=== PATIENT | male | born 1975 | race African-American/Black ===

== ENCOUNTER 2017-03-14 15:31 | Observation (INO) | payer SELFPAY ==
[~2017-03-14] VITALS: Ht 181.6 cm; Wt 122.2 kg
[2017-03-14] VITALS (8 sets, daily range): BP systolic 148–202; BP diastolic 109–145; PULSE 68–155; RESP 16–20; TEMP 98.2; O2SAT 91–98
[2017-03-14 16:30] LABS: AUTOMATED NEUTROPHIL # 3.1 TH/MM3 (1.8-7.7); BASOPHIL % 0.5 % (0.0-2.0); EOSINOPHIL % 0.6 % (0.0-4.0); HEMATOCRIT 44.7 % (39.0-51.0); LYMPH % 42.8 % (9.0-44.0); LYMPHOCYTE # 2.8 TH/MM3 (1.0-4.8); MEAN CELL VOLUME 103.4 FL (80.0-100.0); MEAN CORPUSCULAR HEMOGLOBIN 34.8 PG (27.0-34.0); MEAN CORPUSCULAR HGB CONC 33.7 % (32.0-36.0); MEAN PLATELET VOLUME 10.5 FL (7.0-11.0); MONO % 9.5 % (0.0-8.0); MONOCYTE # 0.6 TH/MM3 (0-0.9); NEUT % 46.6 % (16.0-70.0); PLATELET COUNT 176 TH/MM3 (150-450); RED BLOOD COUNT 4.32 MIL/MM3 (4.50-5.90); RED CELL DISTRIBUTION WIDTH 13.8 % (11.6-17.2); WHITE BLOOD COUNT 6.6 TH/MM3 (4.0-11.0)
[2017-03-14 16:31] LABS: BACTERIA, URINE RARE /hpf; BLOOD, URINE SMALL (NEG); GLUCOSE,URINE NEG (NEG); KETONE, URINE NEG (NEG); MUCUS URINE MANY /lpf (OCC); NITRITE,URINE NEG (NEG); PH, URINE 6.5 (5.0-8.5); SQUAMOUS EPITHELIAL CELL URINE <1 /hpf (0-5); URINE COLOR YELLOW (YELLW/STRAW); URINE LEUKOCYTE ESTERASE NEG (NEG)
[2017-03-14 16:35] LABS: BILIRUBIN, URINE NEG (NEG)
[2017-03-14 16:40] LABS: ALBUMIN 4.1 GM/DL (3.4-5.0); AST (GOT) 22 U/L (15-37); BICARBONATE 26.2 MEQ/L (21.0-32.0); BLOOD UREA NITROGEN 13 MG/DL (7-18); CALCIUM 9.3 MG/DL (8.5-10.1); CHLORIDE 104 MEQ/L (98-107); CREATININE 1.19 MG/DL (0.60-1.30); GLOMERULAR FILTRATION RATE 82 ML/MIN (>89); GLUCOSE,RANDOM 97 MG/DL (74-106); SODIUM (NA) 138 MEQ/L (136-145)
[2017-03-14 16:42] LABS: ALT (GPT) 28 U/L (12-78)
[2017-03-14 16:43] LABS: ALKALINE PHOSPHATASE 68 U/L (45-117); TOTAL BILIRUBIN ADULT 1.6 MG/DL (0.2-1.0); TOTAL PROTEIN 8.2 GM/DL (6.4-8.2)
[2017-03-14] MEDS ORDERED: SODIUM CHLOR 0.9% 1000 ML INJ 1,000 ML IV ONE (17:15)
[2017-03-14] MEDS ORDERED: POTASSIUM CHLORIDE 20 MEQ CONTROLLED RELEASE TAB PO ONE (17:15)
[2017-03-14] MEDS ORDERED: KETOROLAC TROMETHAMINE 30 MG/ML (IVP) VIAL IV PUSH ONE (17:15)
--- NOTE | 2017-03-14 17:15 | PD ---
HPI Chief Complaint: sob Time Seen by Provider: 17:05 Travel History International Travel<30 days: No Contact w/Intl Traveler<30days: No Traveled to known affect area: No History of Present Illness HPI 41yo M with no PMH presents to the ED with c/o sob, right rib pain, nausea, and nonbloody diarrhea for 2 days. Said pain is worst with movement. Occasional abdominal bloating. Denies any trauma or fall. Said he has not had good bowel movement for 2 days and when he does, it is more diarrhea. Denies any fever, chest pain, dysuria, hematuria. PFSH Past Medical History Medical History: Denies Significant Hx Tetanus Vaccination: Unknown Influenza Vaccination: No Past Surgical History Surgical History: No Previous Surgery Social History Alcohol Use: Yes (OCC) Tobacco Use: No Substance Use: No (FORMER MARIJUANA USE) Allergies-Medications (Allergen,Severity, Reaction): Coded Allergies: No Known Allergies (Unverified , 03/14/17) Reported Meds & Prescriptions Reported Meds & Active Scripts Active No Active Prescriptions or Reported Medications Review of Systems Except as stated in HPI: all other systems reviewed are Neg Physical Exam Narrative GENERAL: 41yo M in mild distress. SKIN: Focused skin assessment warm/dry. HEAD: Atraumatic. Normocephalic. CARDIOVASCULAR: Regular rate and rhythm. No murmur appreciated. RESPIRATORY: No accessory muscle use. Clear to auscultation. Breath sounds equal bilaterally. GASTROINTESTINAL: Abdomen soft, non-tender, nondistended. No rebound tenderness or guarding. MUSCULOSKELETAL: Right lower rib ttp. No rash. NEUROLOGICAL: Awake and alert. No obvious cranial nerve deficits. Motor grossly within normal limits. Normal speech. PSYCHIATRIC: Appropriate mood and affect; insight and judgment normal. Data Data Last Documented VS Vital Signs Date Time Temp Pulse Resp B/P (MAP) Pulse Ox O2 Delivery O2 Flow Rate FiO2 03/14/17 20:28 93 Nasal Cannula 2.00 03/14/17 20:27 20 03/14/17 20:16 110 03/14/17 15:35 98.2 Orders Orders Complete Blood Count With Diff (03/14/17 15:48) Comprehensive Metabolic Panel (03/14/17 15:48) Lipase (03/14/17 15:48) Urinalysis - C+S If Indicated (03/14/17 15:48) Influenzae A/B Antigen (03/14/17 15:48) Potassium Chloride (Kcl) (03/14/17 17:15) Ketorolac Inj (Toradol Inj) (03/14/17 17:15) Sodium Chlor 0.9% 1000 Ml Inj (Ns 1000 M (03/14/17 17:15) Ribs, Uni (W/Exp Cxr-Min 3vw) (03/14/17 ) Ondansetron Inj (Zofran Inj) (03/14/17 17:30) Electrocardiogram (03/14/17 ) Lorazepam Inj (Ativan Inj) (03/14/17 20:00) Diltiazem Inj (Cardizem Inj) (03/14/17 20:15) Troponin I (03/14/17 20:18) Ct Pulmonary Angiogram (03/14/17 ) Iohexol 350 Inj (Omnipaque 350 Inj) (03/14/17 20:55) Hydralazine Inj (Apresoline Inj) (03/14/17 21:15) Admit Order (Ed Use Only) (03/14/17 21:45) Labs Laboratory Tests Test 03/14/17 16:02 03/14/17 20:26 White Blood Count 6.6 TH/MM3 Red Blood Count 4.32 MIL/MM3 Hemoglobin 15.0 GM/DL Hematocrit 44.7 % Mean Corpuscular Volume 103.4 FL Mean Corpuscular Hemoglobin 34.8 PG Mean Corpuscular Hemoglobin Concent 33.7 % Red Cell Distribution Width 13.8 % Platelet Count 176 TH/MM3 Mean Platelet Volume 10.5 FL Neutrophils (%) (Auto) 46.6 % Lymphocytes (%) (Auto) 42.8 % Monocytes (%) (Auto) 9.5 % Eosinophils (%) (Auto) 0.6 % Basophils (%) (Auto) 0.5 % Neutrophils # (Auto) 3.1 TH/MM3 Lymphocytes # (Auto) 2.8 TH/MM3 Monocytes # (Auto) 0.6 TH/MM3 Eosinophils # (Auto) 0.0 TH/MM3 Basophils # (Auto) 0.0 TH/MM3 CBC Comment DIFF FINAL Differential Comment Urine Color YELLOW Urine Turbidity CLEAR Urine pH 6.5 Urine Specific [place] 1.023 Urine Protein 100 mg/dL Urine Glucose (UA) NEG mg/dL Urine Ketones NEG mg/dL Urine Occult Blood SMALL Urine Nitrite NEG Urine Bilirubin NEG Urine Urobilinogen 2.0 MG/DL Urine Leukocyte Esterase NEG Urine RBC 9 /hpf Urine WBC 2 /hpf Urine Squamous Epithelial Cells <1 /hpf Urine Bacteria RARE /hpf Urine Mucus MANY /lpf Microscopic Urinalysis Comment CULT NOT INDICATED Blood Urea Nitrogen 13 MG/DL Creatinine 1.19 MG/DL Random Glucose 97 MG/DL Total Protein 8.2 GM/DL Albumin 4.1 GM/DL Calcium Level 9.3 MG/DL Alkaline Phosphatase 68 U/L Aspartate Amino Transf (AST/SGOT) 22 U/L Alanine Aminotransferase (ALT/SGPT) 28 U/L Total Bilirubin 1.6 MG/DL Sodium Level 138 MEQ/L Potassium Level 3.0 MEQ/L Chloride Level 104 MEQ/L Carbon Dioxide Level 26.2 MEQ/L Anion Gap 8 MEQ/L Estimat Glomerular Filtration Rate 82 ML/MIN Lipase 61 U/L Troponin I 0.07 NG/ML MDM Medical Decision Making Medical Screen Exam Complete: Yes Emergency Medical Condition: Yes Interpretation(s) EKG: Afib at 153bpm. Normal axis. Differential Diagnosis Gastroenteritis vs. musculoskeletal pain vs. rib fracture vs. pneumonia Narrative Course 41yo M with multiple complaints. For the last 2 days, he has been feeling sob, nauseous, having diarrhea and occasional abdominal pain. Abdominal exam was unremarkable. However, he is tender in right ribs. Labs reviewed, no leukocytosis. Mild hypokalemia, replaced with PO KCl. Lipase low. Mildly elevated bilirubin with normal LFTs, likely dehydration. UA showed negative leukocyte. Culture not indicated. Will give NS IVF, toradol and zofran and reevaluate. Pt reevaluated at bedside and said his pain has resolved. Xray right ribs showed no fracture. Lungs clear. Compensated cardiomegaly. Pt said he still feels sob and now his heart is racing. Pt placed on monitor and has afib in the 150s-160s. Pt given 31mg of cardizem IV and HR is now in the 90s and low 100s. Lungs are clear. Pt denies any chest pain but is diaphoretic. Troponin added. Pt said he has no PMH except eczema. HR has been controlled after 31mg of cardizem. Pt's blood pressure is still very elevated, given hydralazine 10gm IV. Pt reevaluated at bedside and still feels sob. CT angio showed negative for PE. Bilateral pleural effusions. Troponin mildly elevated at 0.07 which is likely secondary to his elevated blood pressure but will r/o ACS. Discussed with Dr. Grande and accepted to her service. Pt reevaluated and heart rate is now back to 120s, will start pt on cardizem drip. Critical Care Narrative Aggregate critical care time was 60 minutes. Time to perform other separately billable procedures was not included in the critical care time. My time did not include minutes spent treating any other patients simultaneously or on activities that did not directly contribute to the patient's treatment. The services I provided to this patient were to treat and/or prevent clinically significant deterioration that could result in: cardiovascular collapse or . I provided critical care services requiring my management, as noted below: Chart data review, documentation time, medication orders and management, vital sign assessments/reviewing monitor data, ordering and reviewing lab tests, ordering and interpreting/reviewing x-rays and diagnostic studies, care of the patient and discussion of the patient with the admitting physicians. Diagnosis Primary Impression: New onset a-fib Additional Impressions: Pleural effusion Hypertensive emergency Admitting Information Admitting Physician Requests: Admit Scripts No Active Prescriptions or Reported Meds Tamara Vogel DO Mar 14, 2017 17:15
[2017-03-14] MEDS ORDERED: ONDANSETRON HCL 4 MG/2 ML VIAL IV PUSH ONE (17:30)
--- NOTE | 2017-03-14 17:58 | RADRPT ---
EXAM DATE/TIME: 03/14/2017 17:40 [facility] COMPARISON: No previous studies available for comparison. INDICATIONS : Right side chest pain. Cough. MEDICAL HISTORY : None. SURGICAL HISTORY : None. ENCOUNTER: Initial ACUITY: 3 days PAIN SCORE: 5/10 LOCATION: Right chest FINDINGS: Multiple views of the right ribs were performed. There is no evidence of displaced fracture. No raz tructive lesions or areas of periosteal thickening are seen. Expiratory view of the chest is negativ e for pneumothorax. The mediastinal structures are midline. There is degenerative spurring of the dorsal spine. I'd size is prominent but well compensated. Calci fic densities in the soft tissues of the left axilla are nonspecific and may represent debris on the skin surface although calcified regional lymph nodes cannot be excluded. CONCLUSION: 1. Degenerative spurring of the dorsal spine. No fracture. 2. Lungs are clear. 3. Compensated cardiomegaly. Mukesh Patel MD on March 14, 2017 at 17:52 Board Certified Radiologist. This report was verified electronically.
[2017-03-14] MEDS ORDERED: LORazepam 2 MG/ML VIAL IV PUSH ONE (20:00)
[2017-03-14] MEDS ORDERED: DILTIAZEM HCL 25 MG/5 ML VIAL IV PUSH ONE (20:15)
[2017-03-14] MEDS ORDERED: IOHEXOL 350 MG/ML 10 ML VIAL (for RAD DIAG) IVCONTRAST ONE (20:55)
[2017-03-14] MEDS ORDERED: hydrALAZINE HCL 20 MG/ML VIAL IV PUSH ONE (21:15)
--- NOTE | 2017-03-14 21:28 | RADRPT ---
EXAM DATE/TIME: 03/14/2017 20:44 [facility] COMPARISON: No previous studies available for comparison. INDICATIONS : Right side chest pain. IV CONTRAST: 70 cc Omnipaque 350 (iohexol) IV RADIATION DOSE: 23.17 CTDIvol (mGy) MEDICAL HISTORY : None SURGICAL HISTORY : None. ENCOUNTER: Initial ACUITY: 2 days PAIN SCALE: 5/10 LOCATION: Right chest TECHNIQUE: Volumetric scanning of the chest was performed using a pulmonary embolism protocol MIP images were re constructed. Using automated exposure control and adjustment of the mA and/or kV according to patien t size, radiation dose was kept as low as reasonably achievable to obtain optimal diagnostic quality images. DICOM format image data is available electronically for review and comparison. Follow-up recommendations for detected pulmonary nodules are based at a minimum on nodule size and pa tient risk factors according to Fleischner Society Guidelines. FINDINGS: No filling defects identified to suggest pulmonary embolic disease. Bilateral pleural effusions, righ t greater than left. Mild edema pattern. Calcified mediastinal lymph nodes and left axillary lymph no raz. Mild left axillary adenopathy measuring up to 1.8 cm. CONCLUSION: 1. Negative for pulmonary embolus. Bilateral pleural effusions. Multiple calcified mediastinal and ax illary lymph nodes with axillary adenopathy on the left side up to 1.8 cm in diameter. Patrick Weston MD on March 14, 2017 at 21:22 Board Certified Radiologist. This report was verified electronically.
[2017-03-14] MEDS ORDERED: SODIUM CHLORIDE 0.9% FLUSH 10 ML FLUSH IV FLUSH PRN (22:00)
[2017-03-14] MEDS ORDERED: NALOXONE HCL 0.4 MG/ML AMP IV PUSH PRN (22:00)
[2017-03-14] MEDS: DILTIAZEM INJ 125 MG in SODIUM CHLORIDE 0.9% INJ 100 ML IV PRN (23:07)
[2017-03-14] MEDS: ENOXAPARIN SODIUM 40 MG/0.4 ML SYRINGE SQ SCH (23:51)
[2017-03-15] VITALS (9 sets, daily range): BP systolic 135–170; BP diastolic 90–124; PULSE 87–109; RESP 16–18; TEMP 98.2–98.7; O2SAT 91–100
--- NOTE | 2017-03-15 00:26 | EKG ---
Date Performed: 03/14/2017 Time Performed: 20:04:57 PTAGE: 41 years EKG: ATRIAL FIBRILLATION WITH RAPID VENTRICULAR RESPONSE POSSIBLE RIGHT VENTRICULAR CONDUCTION D ELAY NONSPECIFIC T-WAVE ABNORMALITY ABNORMAL RHYTHM ECG NO PREVIOUS TRACING DOCTOR: Lg Green Interpretating Date/Time 03/15/2017 00:24:44
--- NOTE | 2017-03-15 01:20 | HHI.HP ---
[facility] Service [facility] Primary Care Physician No Primary Care Physician Admission Diagnosis Afib RVR, hypertensive emergency Diagnoses: Travel History International Travel<30 Days: No Contact w/Intl Traveler <30 Da: No Traveled to Known Affected Are: No History of Present Illness 41-year-old male presents to the emergency department with a 2 day history of abdominal pain and accompanying nausea/vomiting/diarrhea. The patient reports he came to the emergency department for evaluation of this abdominal pain. While in the ED, he was noted to be tachycardic and EKG showed atrial fibrillation with rapid ventricular response. The patient was also hypertensive to 202/145. He states he developed shortness of breath and heart palpitations both of which were very disconcerting to him. Patient denies any associated chest pain. He has never had anything like this occur in the past. He has no significant medical history although has not been to a doctor in "years." Review of Systems Denies fever or chills Denies blurry vision, otorrhea, rhinorrhea Denies sore throat and cough No chest pain, positive palpitations Positive shortness of breath, no wheezing Positive abdominal pain Denies constipation. Positive diarrhea/nausea/vomiting Denies muscle pain Denies focal weakness No rashes Past Family Social History Past Medical History None Past Surgical History None Reported Medications None Allergies: Coded Allergies: No Known Allergies (Unverified , 03/14/17) Family History Both parents with diabetes mellitus Social History Denies tobacco. Occasional alcohol and marijuana. Denies other illicit drugs. Physical Exam Vital Signs Vital Signs Date Time Temp Pulse Resp B/P (MAP) Pulse Ox O2 Delivery O2 Flow Rate FiO2 03/14/17 23:52 118 20 148/114 (125) 98 Nasal Cannula 2.00 03/14/17 23:07 118 03/14/17 20:28 93 Nasal Cannula 2.00 03/14/17 20:27 20 91 Room Air 03/14/17 20:16 110 20 170/129 (143) 94 03/14/17 20:07 155 16 202/145 (164) 95 Room Air 03/14/17 18:01 68 16 154/115 (128) 98 Room Air 03/14/17 16:41 18 03/14/17 15:46 172/109 (130) 03/14/17 15:35 98.2 103 18 98 Physical Exam GENERAL: male lying in bed SKIN: No rashes, ecchymoses or lesions. Cool and dry. HEAD: Atraumatic. Normocephalic. No temporal or scalp tenderness. EYES: Pupils equal round and reactive. Extraocular motions intact. No scleral icterus. No injection or drainage. ENT: Nose without bleeding, purulent drainage or septal hematoma. Throat without erythema, tonsillar hypertrophy or exudate. Uvula midline. Airway patent. NECK: Trachea midline. No JVD or lymphadenopathy. Supple, nontender, no meningeal signs. CARDIOVASCULAR: Tachycardic. Irregularly irregular rate without murmurs, gallops, or rubs. RESPIRATORY: Clear to auscultation. Breath sounds equal bilaterally. No wheezes , rales, or rhonchi. GASTROINTESTINAL: Abdomen soft, non-tender, nondistended. No hepato-splenomegaly , or palpable masses. No guarding. MUSCULOSKELETAL: Extremities without clubbing, cyanosis, or edema. No joint tenderness, effusion, or edema noted. No calf tenderness. NEUROLOGICAL: Awake and alert. Cranial nerves II through XII intact. Motor and sensory grossly within normal limits. Normal speech. Laboratory Laboratory Tests Test 03/14/17 16:02 03/14/17 20:26 White Blood Count 6.6 Red Blood Count 4.32 Hemoglobin 15.0 Hematocrit 44.7 Mean Corpuscular Volume 103.4 Mean Corpuscular Hemoglobin 34.8 Mean Corpuscular Hemoglobin Concent 33.7 Red Cell Distribution Width 13.8 Platelet Count 176 Mean Platelet Volume 10.5 Neutrophils (%) (Auto) 46.6 Lymphocytes (%) (Auto) 42.8 Monocytes (%) (Auto) 9.5 Eosinophils (%) (Auto) 0.6 Basophils (%) (Auto) 0.5 Neutrophils # (Auto) 3.1 Lymphocytes # (Auto) 2.8 Monocytes # (Auto) 0.6 Eosinophils # (Auto) 0.0 Basophils # (Auto) 0.0 CBC Comment DIFF FINAL Differential Comment Urine Color YELLOW Urine Turbidity CLEAR Urine pH 6.5 Urine Specific [place] 1.023 Urine Protein 100 Urine Glucose (UA) NEG Urine Ketones NEG Urine Occult Blood SMALL Urine Nitrite NEG Urine Bilirubin NEG Urine Urobilinogen 2.0 Urine Leukocyte Esterase NEG Urine RBC 9 Urine WBC 2 Urine Squamous Epithelial Cells <1 Urine Bacteria RARE Urine Mucus MANY Microscopic Urinalysis Comment CULT NOT INDICATED Blood Urea Nitrogen 13 Creatinine 1.19 Random Glucose 97 Total Protein 8.2 Albumin 4.1 Calcium Level 9.3 Alkaline Phosphatase 68 Aspartate Amino Transf (AST/SGOT) 22 Alanine Aminotransferase (ALT/SGPT) 28 Total Bilirubin 1.6 Sodium Level 138 Potassium Level 3.0 Chloride Level 104 Carbon Dioxide Level 26.2 Anion Gap 8 Estimat Glomerular Filtration Rate 82 B-Type Natriuretic Peptide 418 Lipase 61 Troponin I 0.07 Date/Time Source Procedure Growth Status 03/14/17 16:02 Nasal Aspirate Influenza Types A,B Antigen (SAHARA) - Final NEGATIVE FOR FLU A AND B ANTIGEN.... Complete Result Diagram: 03/14/17 1602 03/14/17 1602 Caprini VTE Risk Assessment Caprini VTE Risk Assessment: No/Low Risk (score <= 1) Caprini Risk Assessment Model Point Value = 1 Point Value = 2 Point Value = 3 Point Value = 5 Age 41-60 Minor surgery BMI > 25 kg/m2 Swollen legs Varicose veins or History of unexplained or recurrent spontaneous Oral contraceptives or hormone replacement Sepsis (< 1 month) Serious lung disease, including pneumonia (< 1 month) Abnormal pulmonary function Acute myocardial infarction Congestive heart failure (< 1 month) History of inflammatory bowel disease Medical patient at bed rest Age 61-74 Arthroscopic surgery Major open surgery (> 45 min) Laparoscopic surgery (> 45 min) Malignancy Confined to bed (> 72 hours) Immobilizing plaster cast Central venous access Age >= 75 History of VTE Family history of VTE Factor V Leiden Prothrombin 53310C Lupus anticoagulant Anticardiolipin antibodies Elevated serum homocysteine Heparin-induced thrombocytopenia Other congenital or acquired thrombophilia Stroke (< 1 month) Elective arthroplasty Hip, pelvis, or leg fracture Acute spinal cord injury (< 1 month) Prophylaxis Regimen Total Risk Factor Score Risk Level Prophylaxis Regimen 0-1 Low Early ambulation 2 Moderate Order ONE of the following: *Sequential Compression Device (SCD) *Heparin 5000 units SQ BID 3-4 Higher Order ONE of the following medications: *Heparin 5000 units SQ TID *Enoxaparin/Lovenox 40 mg SQ daily (WT < 150 kg, CrCl > 30 mL/min) *Enoxaparin/Lovenox 30 mg SQ daily (WT < 150 kg, CrCl > 10-29 mL/min) *Enoxaparin/Lovenox 30 mg SQ BID (WT < 150 kg, CrCl > 30 mL/min) AND/OR *Sequential Compression Device (SCD) 5 or more Highest Order ONE of the following medications: *Heparin 5000 units SQ TID (Preferred with Epidurals) *Enoxaparin/Lovenox 40 mg SQ daily (WT < 150 kg, CrCl > 30 mL/min) *Enoxaparin/Lovenox 30 mg SQ daily (WT < 150 kg, CrCl > 10-29 mL/min) *Enoxaparin/Lovenox 30 mg SQ BID (WT < 150 kg, CrCl > 30 mL/min) AND *Sequential Compression Device (SCD) Assessment and Plan Assessment and Plan Assessment/plan: 1. Atrial fibrillation with rapid ventricular response EKG significant for atrial fibrillation with RVR, HR 153, no ST segment elevations or depressions, images reviewed by me New onset, cardiology consulted, appreciate recommendations Diltiazem drip ECHO pending 2. Hypertensive urgency BP elevated to 202/145 in the emergency department Diltiazem drip as above 3. Elevated troponin Troponin elevated to 0.07, likely secondary to new onset atrial fibrillation Patient denies any associated chest pain Serial troponins/EKGs to rule out ACS 4. Abdominal pain with nausea/vomiting/diarrhea Resolved at this time Likely viral in origin Consider stool studies or CT abdomen if symptoms persist/return Patient currently tolerating by mouth 5. Hypokalemia Status post by mouth supplementation Monitor BMP Mag level pending [facility] Healthy diet Electrolyte: As above Physician Certification 2 Midnight Certification Type: Admission for Inpatient Services Order for Inpatient Services The services are ordered in accordance with Medicare regulations or non- Medicare payer requirements, as applicable. In the case of services not specified as inpatient-only, they are appropriately provided as inpatient services in accordance with the 2-midnight benchmark. Estimated LOS (days): 2 2 days is the estimated time the patient will need to remain in the hospital, assuming treatment plan goals are met and no additional complications. Post-Hospital Plan: Not yet determined Pearl Grande MD Mar 15, 2017 01:20
[2017-03-15 03:04] LABS: AUTOMATED NEUTROPHIL # 2.4 TH/MM3 (1.8-7.7); BASOPHIL % 0.7 % (0.0-2.0); EOSINOPHIL % 0.7 % (0.0-4.0); HEMOGLOBIN 13.2 GM/DL (13.0-17.0); LYMPH % 47.9 % (9.0-44.0); LYMPHOCYTE # 2.7 TH/MM3 (1.0-4.8); MEAN CELL VOLUME 103.6 FL (80.0-100.0); MEAN CORPUSCULAR HEMOGLOBIN 35.1 PG (27.0-34.0); MEAN CORPUSCULAR HGB CONC 33.9 % (32.0-36.0); MEAN PLATELET VOLUME 10.4 FL (7.0-11.0); MONO % 8.9 % (0.0-8.0); MONOCYTE # 0.5 TH/MM3 (0-0.9); NEUT % 41.8 % (16.0-70.0); PLATELET COUNT 163 TH/MM3 (150-450); RED BLOOD COUNT 3.77 MIL/MM3 (4.50-5.90); RED CELL DISTRIBUTION WIDTH 14.1 % (11.6-17.2); WHITE BLOOD COUNT 5.6 TH/MM3 (4.0-11.0)
[2017-03-15] MEDS: ACETAMINOPHEN 325 MG TAB PO PRN ×2 (03:27→20:10)
[2017-03-15 03:33] LABS: BICARBONATE 25.3 MEQ/L (21.0-32.0); CALCIUM 8.2 MG/DL (8.5-10.1); CREATININE 0.88 MG/DL (0.60-1.30)
[2017-03-15 03:34] LABS: TROPONIN I 0.07 NG/ML (0.02-0.05)
[2017-03-15] MEDS ORDERED: IBUPROFEN 400 MG TAB PO ONE (06:30)
[2017-03-15] MEDS: DILTIAZEM INJ 125 MG in SODIUM CHLORIDE 0.9% INJ 100 ML IV PRN ×4 (06:40→23:50)
[2017-03-15] MEDS: SODIUM CHLORIDE 0.9% FLUSH 10 ML FLUSH IV FLUSH SCH ×2 (09:00→21:00)
[2017-03-15 10:17] LABS: TROPONIN I 0.06 NG/ML (0.02-0.05)
--- NOTE | 2017-03-15 15:55 | HHI.PR ---
Subjective Remarks Follow-up for atrial fibrillation and hypertensive urgency Patient stated that shortness of breathing has improved. Continues to complain about right upper quadrant pain. He stated that pain worsens with oral intake. He also has constipation. Positive for emesis. Denies any chest pain, palpitation, lightheadedness or dizziness. Objective Vitals Vital Signs Date Time Temp Pulse Resp B/P (MAP) Pulse Ox O2 Delivery O2 Flow Rate FiO2 03/15/17 15:10 96 130/100 03/15/17 14:07 Nasal Cannula 2.00 03/15/17 13:00 98.5 90 16 158/121 (133) 92 03/15/17 12:37 03/15/17 12:17 110 03/15/17 09:34 107 18 151/97 (115) 100 03/15/17 07:23 87 18 100 Nasal Cannula 2.00 03/15/17 06:40 112 03/15/17 03:27 106 18 167/119 (135) 98 Nasal Cannula 2.00 03/14/17 23:52 118 20 148/114 (125) 98 Nasal Cannula 2.00 03/14/17 23:07 118 03/14/17 20:28 93 Nasal Cannula 2.00 03/14/17 20:27 20 91 Room Air 03/14/17 20:16 110 20 170/129 (143) 94 03/14/17 20:07 155 16 202/145 (164) 95 Room Air 03/14/17 18:01 68 16 154/115 (128) 98 Room Air 03/14/17 16:41 18 03/14/17 15:46 172/109 (130) I/O 03/14/17 03/14/17 03/14/17 03/15/17 03/15/17 03/15/17 07:00 15:00 23:00 07:00 15:00 23:00 Intake Total 1000 ml Balance 1000 ml Intake IV Total 1000 ml Result Diagram: 03/15/1724103/15/17241 Imaging . Objective Remarks GENERAL: in NAD CARDIOVASCULAR: Irregular rate and irregular rhythm without murmurs, gallops, or rubs. RESPIRATORY: Breath sounds equal bilaterally. No accessory muscle use. GASTROINTESTINAL: Abdomen soft and nondistended. +TTP in RUQ MUSCULOSKELETAL: No cyanosis, or edema Medications and IVs Current Medications Potassium Chloride (KCl) 60 meq ONCE ONCE PO Last administered on 03/14/17at 17 :56; Start 03/14/17 at 17:15; Stop 03/14/17 at 17:16; Status DC Ketorolac Tromethamine (Toradol Inj) 30 mg ONCE ONCE IV PUSH Last administered on 03/14/17at 17:56; Start 03/14/17 at 17:15; Stop 03/14/17 at 17:16 ; Status DC Sodium Chloride 1,000 ml @ 999 mls/hr BOLUS ONCE IV Last administered on 03/14at 17:56; Start 03/14/17 at 17:15; Stop 03/14/17 at 18:39; Status DC Ondansetron HCl (Zofran Inj) 4 mg ONCE ONCE IV PUSH Last administered on at 17:56; Start 03/14/17 at 17:30; Stop 03/14/17 at 17:31; Status DC Lorazepam (Ativan Inj) 1 mg ONCE ONCE IV PUSH Last administered on 03/14/17at 20:15; Start 03/14/17 at 20:00; Stop 03/14/17 at 20:08; Status DC Diltiazem HCl (Cardizem Inj) 31 mg BOLUS ONCE IV PUSH Last administered on at 20:15; Start 03/14/17 at 20:15; Stop 03/14/17 at 20:16; Status DC Iohexol (Omnipaque 350 Inj) 70 ml STK-MED ONCE IVCONTRAST Last administered on 03/14/17at 20:55; Start 03/14/17 at 20:55; Stop 03/14/17 at 20:56; Status DC Hydralazine HCl (Apresoline Inj) 10 mg ONCE ONCE IV PUSH Last administered on 03/14/17at 21:26; Start 03/14/17 at 21:15; Stop 03/14/17 at 21:19; Status DC Diltiazem HCl 125 mg/Sodium Chloride 125 ml @ 5 mls/hr TITRATE PRN IV Tachycardia Last administered on 03/15/17at 15:10; Start 03/14/17 at 22:00 Sodium Chloride (NS Flush) 2 ml UNSCH PRN IV FLUSH FLUSH AFTER USING IV ACCESS ; Start 1/24/18 at 22:00 Sodium Chloride (NS Flush) 2 ml BID IV FLUSH ; Start 03/15/17 at 09:00 Acetaminophen (Tylenol) 650 mg Q4H PRN PO TEMP > 100.4 Last administered on at 03:27; Start 03/14/17 at 22:00 Enoxaparin Sodium (Lovenox Inj) 40 mg Q24H SQ Last administered on 03/14/17at 23 :51; Start 03/14/17 at 22:00 Naloxone HCl (Narcan Inj) 0.4 mg UNSCH PRN IV PUSH SEE LABEL COMMENTS; Start at 22:00 Ibuprofen (Motrin) 400 mg ONCE ONCE PO Last administered on 03/15/17at 06:43; Start 03/15/17 at 06:30; Stop 03/15/17 at 06:31; Status DC A/P Assessment and Plan This is a 41-year-old male presented with stress of breathing and right upper quadrant pain 1. Atrial fibrillation with rapid ventricular response EKG significant for atrial fibrillation with RVR, HR 153, no ST segment elevations or depressions. New onset, cardiology consulted. Recommendations. On Cardizem drip. ECHO pending CHADSVASC 1 (HTN) will add ASA 81. 2. Hypertensive urgency BP elevated to 202/145 in the emergency department Improving Diltiazem drip as above 3. Elevated troponin Troponin elevated to 0.07 and flat. Most likely secondary to atrophic fibrillation with RVR. 4. Abdominal pain with nausea/vomiting -Abdominal pain more in the right upper quadrant associated with food. Will get ultrasound the gallbladder. 5. Hypokalemia Replenish as needed. 6. Constipation -Will give MiraLAX. Noris Martinez MD Mar 15, 2017 15:55
[2017-03-15] MEDS: ASPIRIN EC 81 MG TABEC PO SCH (17:08)
[2017-03-15] MEDS: POLYETHYLENE GLYCOL 17 GM PKG PO SCH (17:09)
--- NOTE | 2017-03-15 18:12 | ECHRPT ---
Indication: a fib/flutter CONCLUSIONS The left ventricular systolic function is [id number] reduced with an estimated ejection fra ction in the range of 35-40%. Normal left ventricular size. Trace mitral valve regurgitation. No aortic valve regurgitation. No aortic valve stenosis. There is mild tricuspid valve regurgitation. The estimated pulmonary arterial pressure is 36.2 mmHg. BP: / HR: Rhythm: MEASUREMENTS (Male / Female) Normal Values Technical Quality:Good 2D ECHO LV Diastolic Diameter PLAX 5.0 cm 4.2 - 5.9 / 3.9 - 5.3 cm LV Systolic Diameter PLAX 4.3 cm IVS Diastolic Thickness 1.8 cm 0.6 - 1.0 / 0.6 - 0.9 cm LVPW Diastolic Thickness 1.7 cm 0.6 - 1.0 / 0.6 - 0.9 cm LV Relative Wall Thickness 0.7 RV Internal Dim ED PLAX 3.5 cm M-MODE Aortic Root Diameter MM 4.1 cm LA Systolic Diameter MM 5.1 cm LA Ao Ratio MM 1.2 AV Cusp Separation MM 2.3 cm DOPPLER LV E' Lateral Velocity 8.5 cm/s LV E' Septal Velocity 8.0 cm/s TR Peak Velocity 256.0 cm/s TR Peak Gradient 26.2 mmHg Right Atrial Pressure 10.0 mmHg Pulmonary Artery Systolic Pressu 36.2 mmHg Right Ventricular Systolic Press 36.2 mmHg FINDINGS LEFT VENTRICLE The left ventricular systolic function is ohgvoynb-[id number] reduced with an estimated ejection fra ction in the range of 35-40%. Normal left ventricular size. RIGHT VENTRICLE Normal right ventricular size and systolic function. LEFT ATRIUM The left atrial size is normal. RIGHT ATRIUM The right atrial size is normal. ATRIAL SEPTUM Normal atrial septal thickness without atrial level shunting by limited color doppler interrogation. AORTA The aortic root and proximal ascending aorta are normal in size on limited imaging. MITRAL VALVE Structurally normal mitral valve. Trace mitral valve regurgitation. AORTIC VALVE Trileaflet aortic valve. No aortic valve regurgitation. No aortic valve stenosis. TRICUSPID VALVE Structurally normal tricuspid valve. There is mild tricuspid valve regurgitation. The estimated pulmonary arterial pressure is 36.2 mmHg. PULMONARY VALVE No pulmonary valve regurgitation or stenosis. VESSELS The inferior vena cava is normal in size. PERICARDIUM No pericardial effusion. Jovani Burns MD (Electronically Signed) Final Date:15 March 2017 18:11
[2017-03-15] MEDS: amLODIPine BESYLATE 5 MG TAB PO SCH (18:57)
[2017-03-15] MEDS: ENOXAPARIN SODIUM 40 MG/0.4 ML SYRINGE SQ SCH (22:20)
--- NOTE | 2017-03-15 22:31 | MB ---
cc: SKY GERARDO MD DATE OF CONSULTATION 03/15/17 HISTORY OF PRESENT ILLNESS Mr. Whyte is a 41-year-old black male who presented with two-day history of abdominal pain, nausea, vomiting and diarrhea. He was found to be in atrial fibrillation with rapid ventricular response. He also had severe hypertension. He has had symptoms since last Sunday. He has not been seeing any physicians for years. He has not had any chest pain. PAST MEDICAL HISTORY Negative for hypertension, dyslipidemia, diabetes mellitus, coronary artery disease, cerebrovascular accident. PAST SURGICAL HISTORY No major surgeries. MEDICATIONS None. ALLERGIES None. SOCIAL HISTORY The patient does not smoke. He drinks alcohol occasionally. He smokes marijuana. He does not use other drugs. FAMILY HISTORY Negative for heart disease and positive for diabetes mellitus. REVIEW OF SYSTEMS Otherwise negative. PHYSICAL EXAMINATION VITAL SIGNS: Blood pressure 130/100, pulse 96 and irregular. HEENT: Negative. 2+ carotid upstrokes. No bruits. LUNGS: Clear. HEART: Irregularly irregular with no murmur, gallop or rub. ABDOMEN: Soft. No bruits. EXTREMITIES: Without edema. 2+ distal pulses NEUROLOGIC: Grossly intact. CARDIOLOGY STUDIES EKG was reviewed and showed atrial fibrillation with rapid ventricular response, RSR prime in V1, nonspecific T-wave changes. LABORATORY DATA Hemoglobin 13.2, potassium 3.6, creatinine 0.9, troponin 0.07, 0.07 and 0.06. BNP 418. DIAGNOSES 1. Atrial fibrillation with rapid ventricular response. 2. Severe hypertension, 3. Mild troponin elevation. 4. Nausea, vomiting and abdominal pain. DISPOSITION Mr Whyte will be monitored on telemetry. We will continue rate control of his atrial fibrillation with diltiazem. We will continue aspirin and Enoxaparin. If he does not convert spontaneously, we may consider cardioversion of his atrial fibrillation. We will obtain echocardiogram to evaluate his left ventricular function. I will follow him for cardiology during his hospitalization. MD CATE Chinchilla/ /5:14 PM /9:59 PM TANVI
--- NOTE | 2017-03-15 22:52 | EKG ---
Date Performed: 03/15/2017 Time Performed: 09:25:27 PTAGE: 41 years EKG: ATRIAL FIBRILLATION WITH RAPID VENTRICULAR RESPONSE POSSIBLE RIGHT VENTRICULAR CONDUCTION D ELAY NONSPECIFIC T-WAVE ABNORMALITY ABNORMAL RHYTHM ECG PREVIOUS TRACING : 03/15/2017 03.22 Since the prior tracing, there has been no significant torres DOCTOR: Lg Green Interpretating Date/Time 03/15/2017 22:52:14
--- NOTE | 2017-03-15 23:31 | EKG ---
Date Performed: 03/15/2017 Time Performed: 03:22:25 PTAGE: 41 years EKG: ATRIAL FIBRILLATION WITH RAPID VENTRICULAR RESPONSE POSSIBLE RIGHT VENTRICULAR CONDUCTION D NEHEMIAH MINIMAL VOLTAGE CRITERIA FOR LVH, CONSIDER NORMAL VARIANT NONSPECIFIC T-WAVE ABNORMALITY ABNORMA L RHYTHM ECG Since the prior tracing, there has been no significant change DOCTOR: Lg Green Interpretating Date/Time 03/15/2017 23:29:53
[2017-03-16] VITALS (8 sets, daily range): BP systolic 158–183; BP diastolic 82–118; PULSE 81–126; RESP 18–20; TEMP 98.3–98.8; O2SAT 94–95
[2017-03-16] MEDS: ACETAMINOPHEN 325 MG TAB PO PRN ×5 (00:20→23:00)
[2017-03-16] MEDS: ENALAPRILAT 2.5 MG/2 ML VIAL IV PUSH PRN ×2 (02:28→13:37)
--- NOTE | 2017-03-16 08:24 | HHI.PR ---
Subjective Remarks in no acute distress. has occasional cough and sob. no chest pain. still on Cardizem drip. Objective Vitals Vital Signs Date Time Temp Pulse Resp B/P (MAP) Pulse Ox O2 Delivery O2 Flow Rate FiO2 03/16/17 06:42 18 03/16/17 04:01 93 03/16/17 04:00 Nasal Cannula 2.00 03/16/17 03:49 98.3 84 18 158/88 (111) 94 03/16/17 00:01 85 03/16/17 00:00 Nasal Cannula 2.00 03/15/17 23:55 98.7 92 18 152/113 (126) 91 03/15/17 23:51 89 148/96 03/15/17 23:50 159 159/114 03/15/17 20:00 96 03/15/17 19:28 98.5 100 18 135/90 (105) 92 03/15/17 16:00 Nasal Cannula 2.00 03/15/17 16:00 109 03/15/17 16:00 98.2 98 16 170/124 (139) 96 03/15/17 15:10 96 130/100 03/15/17 14:07 Nasal Cannula 2.00 03/15/17 13:42 93 03/15/17 13:00 98.5 90 16 158/121 (133) 92 03/15/17 12:37 03/15/17 12:17 110 03/15/17 09:34 107 18 151/97 (115) 100 I/O 03/15/17 03/15/17 03/15/17 03/16/17 03/16/17 03/16/17 07:00 15:00 23:00 07:00 15:00 23:00 Intake Total 1000 ml 540 ml 360 ml Output Total 450 ml 500 ml Balance 1000 ml 90 ml -140 ml Intake Oral 540 ml 360 ml IV Total 1000 ml Output Urine Total 450 ml 500 ml # Voids 1 # Bowel Movements 0 0 Result Diagram: 03/15/1724103/15/17 0242 Imaging Last Impressions Ribs X-Ray 03/14/17 0000 Signed Impressions: Service Date/Time: Tuesday, March 14, 2017 17:40 - CONCLUSION: 1. Degenerative spurring of the dorsal spine. No fracture. 2. Lungs are clear. 3. Compensated cardiomegaly. Mukesh Patel MD CT Angiography 03/14/17 0000 Signed Impressions: Service Date/Time: Tuesday, March 14, 2017 20:44 - CONCLUSION: 1. Negative for pulmonary embolus. Bilateral pleural effusions. Multiple calcified mediastinal and axillary lymph nodes with axillary adenopathy on the left side up to 1.8 cm in diameter. Patrick Weston MD Objective Remarks GENERAL: This is a well-nourished, well-developed patient, in no apparent distress. CARDIOVASCULAR: Regular rate and irregular rhythm without murmurs, gallops, or rubs. RESPIRATORY: Clear to auscultation. Breath sounds equal bilaterally. No wheezes , rales, or rhonchi. GASTROINTESTINAL: Abdomen soft, non-tender, nondistended. Normal, active bowel sounds MUSCULOSKELETAL: Extremities without clubbing, cyanosis, or edema. NEURO: Alert & Oriented x4 to person, place, time, situation. Moves all ext x4 Medications and IVs Inpatient Medications Acetaminophen (Tylenol) 650 mg Q4H PRN PO TEMP > 100.4/DANIELS Last administered on 03/16/17at 05:13; Start 03/14/17 at 22:00 Amlodipine Besylate (Norvasc) 5 mg DAILY PO Last administered on 03/15/17at 18: 57; Start 03/15/17 at 19:00 Aspirin (Ecotrin Ec) 81 mg DAILY PO Last administered on 03/15/17at 17:08; Start 03/15/17 at 16:00 Diltiazem HCl (Cardizem Inj) 31 mg BOLUS ONCE IV PUSH Last administered on at 20:15; Start 03/14/17 at 20:15; Stop 03/14/17 at 20:16; Status DC Diltiazem HCl 125 mg/Sodium Chloride 125 ml @ 5 mls/hr TITRATE PRN IV Tachycardia Last administered on 03/15/17at 23:50; Start 03/14/17 at 22:00 Enalaprilat (Vasotec Inj) 2.5 mg Q6H PRN IV PUSH SBP>180 or DBP>100 Last administered on 03/16/17at 02:28; Start 03/15/17 at 18:45 Enoxaparin Sodium (Lovenox Inj) 40 mg Q24H SQ Last administered on 03/15/17at 22 :20; Start 03/14/17 at 22:00 Hydralazine HCl (Apresoline Inj) 10 mg ONCE ONCE IV PUSH Last administered on 03/14/17at 21:26; Start 03/14/17 at 21:15; Stop 03/14/17 at 21:19; Status DC Ibuprofen (Motrin) 400 mg ONCE ONCE PO Last administered on 03/15/17at 06:43; Start 03/15/17 at 06:30; Stop 03/15/17 at 06:31; Status DC Ketorolac Tromethamine (Toradol Inj) 30 mg ONCE ONCE IV PUSH Last administered on 03/14/17at 17:56; Start 03/14/17 at 17:15; Stop 03/14/17 at 17:16 ; Status DC Lorazepam (Ativan Inj) 1 mg ONCE ONCE IV PUSH Last administered on 03/14/17at 20:15; Start 03/14/17 at 20:00; Stop 03/14/17 at 20:08; Status DC Naloxone HCl (Narcan Inj) 0.4 mg UNSCH PRN IV PUSH SEE LABEL COMMENTS; Start at 22:00 Ondansetron HCl (Zofran Inj) 4 mg ONCE ONCE IV PUSH Last administered on at 17:56; Start 03/14/17 at 17:30; Stop 03/14/17 at 17:31; Status DC Polyethylene Glycol (Miralax) 17 gm DAILY PO Last administered on 03/15/17at 17: 09; Start 03/15/17 at 16:00 Potassium Chloride (KCl) 60 meq ONCE ONCE PO Last administered on 03/14/17at 17 :56; Start 03/14/17 at 17:15; Stop 03/14/17 at 17:16; Status DC Sodium Chloride (NS Flush) 2 ml BID IV FLUSH ; Start 03/15/17 at 09:00 A/P Assessment and Plan 1. Atrial fibrillation with rapid ventricular response- new onset. continue with Cardizem drip. on Lovenox and aspirin. echo pending. awaiting cardiology follow-up and recommendations; for possible ablation. 2. Hypertensive urgency BP elevated to 202/145 in the emergency department Improving Diltiazem drip as above 3. Elevated troponin Troponin elevated to 0.07 and flat. Most likely secondary to atrophic fibrillation with RVR. 4. Abdominal pain with nausea/vomiting - ultrasound the gallbladder pending. 5. Hypokalemia Replenish as needed. 6. Constipation -laxatives as needed. Discharge Planning awaiting cardiology f/u and recommendations; possible ablation?. Margaux Smallwood MD Mar 16, 2017 08:24
[2017-03-16] MEDS: SODIUM CHLORIDE 0.9% FLUSH 10 ML FLUSH IV FLUSH SCH ×2 (08:36→21:00)
[2017-03-16] MEDS: amLODIPine BESYLATE 5 MG TAB PO SCH (08:37)
[2017-03-16] MEDS: ASPIRIN EC 81 MG TABEC PO SCH (08:37)
[2017-03-16] MEDS: POLYETHYLENE GLYCOL 17 GM PKG PO SCH (08:38)
--- NOTE | 2017-03-16 08:41 | RADRPT ---
EXAM DATE/TIME: 03/16/2017 07:56 [facility] COMPARISON: CT PULMONARY ANGIOGRAM, March 14, 2017, 20:44. INDICATIONS : Right upper quadrant pain. MEDICAL HISTORY : Hypertension. Right upper quadrant pain. Nausea/vomiting. Tachycardia. Chest pain. Afib. Shortnes s of breath. SURGICAL HISTORY : None. ENCOUNTER: Initial ACUITY: 4-6 days PAIN SCORE: 2/10 LOCATION: Right upper quadrant MEASUREMENTS: LIVER: 16.8 cm length COMMON DUCT: 4 mm RIGHT KIDNEY: 11.1 x 5.9 x 5.1 cm FINDINGS: LIVER: Normal echotexture without focal lesion or ductal dilatation. Hepatopedal flow within the portal vein . COMMON DUCT: No intraluminal mass or stone visualized. GALLBLADDER: Gallbladder is not distended. Contains no stones, demonstrates no wall thickening or pericholecystic fluid. PANCREAS: The visualized portions are within normal limits. RIGHT KIDNEY: No evidence of hydronephrosis, stone, or mass.A 3 cm simple cyst is seen involving the lower pole. Right pleural effusion is seen. CONCLUSION: 1. Right pleural effusion. 2. Otherwise, unremarkable exam. Gerard Ureña Jr., MD on March 16, 2017 at 8:36 Board Certified Radiologist. This report was verified electronically.
[2017-03-16] MEDS: DILTIAZEM INJ 125 MG in SODIUM CHLORIDE 0.9% INJ 100 ML IV PRN (11:15)
--- NOTE | 2017-03-16 19:16 | PD.CARD.PN ---
Subjective Subjective Remarks No CP, c/o SOB, overall not feeling well Objective Medications Current Medications Medications (Trade) Dose Ordered Sig/Gibson Route Start Time Stop Time Status Last Admin Diltiazem HCl 125 mg/Sodium Chloride 125 ml @ 5 mls/hr TITRATE PRN IV 03/14/17 22:00 03/16/17 11:15 (NS Flush) 2 ml UNSCH PRN IV FLUSH 03/14/17 22:00 (NS Flush) 2 ml BID IV FLUSH 03/15/17 09:00 (Tylenol) 650 mg Q4H PRN PO 03/14/17 22:00 03/16/17 16:23 (Lovenox Inj) 40 mg Q24H SQ 03/14/17 22:00 03/15/17 22:20 (Narcan Inj) 0.4 mg UNSCH PRN IV PUSH 03/14/17 22:00 (Ecotrin Ec) 81 mg DAILY PO 03/15/17 16:00 03/16/17 08:37 (Miralax) 17 gm DAILY PO 03/15/17 16:00 03/16/17 08:38 (Vasotec Inj) 2.5 mg Q6H PRN IV PUSH 03/15/17 18:45 03/16/17 13:37 (Norvasc) 5 mg DAILY PO 03/15/17 19:00 03/16/17 08:37 Vital Signs / I&O Vital Signs Date Time Temp Pulse Resp B/P (MAP) Pulse Ox O2 Delivery O2 Flow Rate FiO2 03/16/17 18:55 Nasal Cannula 2.00 03/16/17 16:27 Nasal Cannula 2.00 03/16/17 16:00 90 03/16/17 16:00 98.5 92 20 180/82 (114) 95 03/16/17 12:00 126 03/16/17 12:00 98.6 88 20 179/118 (138) 95 03/16/17 12:00 2.00 03/16/17 11:15 96 183/100 03/16/17 08:00 81 03/16/17 08:00 Nasal Cannula 2.00 03/16/17 08:00 98.4 90 20 183/100 (127) 95 03/16/17 06:42 18 03/16/17 04:01 93 03/16/17 04:00 Nasal Cannula 2.00 03/16/17 03:49 98.3 84 18 158/88 (111) 94 03/16/17 00:01 85 03/16/17 00:00 Nasal Cannula 2.00 03/15/17 23:55 98.7 92 18 152/113 (126) 91 03/15/17 23:51 89 148/96 03/15/17 23:50 159 159/114 03/15/17 20:00 96 03/15/17 19:28 98.5 100 18 135/90 (105) 92 I/O 03/15/17 03/15/17 03/15/17 03/16/17 03/16/17 03/16/17 07:00 15:00 23:00 07:00 15:00 23:00 Intake Total 1000 ml 540 ml 360 ml Output Total 450 ml 500 ml Balance 1000 ml 90 ml -140 ml Intake Oral 540 ml 360 ml IV Total 1000 ml Output Urine Total 450 ml 500 ml # Voids 1 # Bowel Movements 0 0 Physical Exam GENERAL: SKIN: Warm and dry. HEAD: Normocephalic. EYES: No scleral icterus. No injection or drainage. NECK: Supple, trachea midline. No JVD or lymphadenopathy. CARDIOVASCULAR: Irregular rate and rhythm, without murmurs, gallops, or rubs. RESPIRATORY: Breath sounds equal bilaterally. No accessory muscle use. GASTROINTESTINAL: Abdomen soft, non-tender, nondistended. MUSCULOSKELETAL: No cyanosis, or edema. . Imaging Last 24 hours Impressions Gall Bladder Ultrasound 03/16/17 0000 Signed Impressions: Service Date/Time: Thursday, March 16, 2017 07:56 - CONCLUSION: 1. Right pleural effusion. 2. Otherwise, unremarkable exam. Gerard Ureña Jr., MD Assessment and Plan Problem List: (1) New onset a-fib ICD Codes: I48.91 - Unspecified atrial fibrillation Status: Acute (2) Hypertensive emergency ICD Codes: I16.1 - Hypertensive emergency Status: Acute (3) Abdominal pain ICD Codes: R10.9 - Unspecified abdominal pain (4) Nausea & vomiting ICD Codes: R11.2 - Nausea with vomiting, unspecified Assessment and Plan Still in a fib with RVR. Echo with moderate LV dysfunction. Start beta court and [id number]. Eval for N/V/abd pain in progress. Once completed, will start anticoagulation and subsequently schedule for RADHA and cardioversion. Dontrell Arriaga MD Mar 16, 2017 19:16
[2017-03-16] MEDS: CARVEDILOL 12.5 MG TAB PO SCH (23:00)
[2017-03-16] MEDS: LISINOPRIL 10 MG TAB PO SCH (23:00)
[2017-03-16] MEDS: ENOXAPARIN SODIUM 40 MG/0.4 ML SYRINGE SQ SCH (23:03)
[2017-03-17] VITALS (12 sets, daily range): BP systolic 138–160; BP diastolic 62–106; PULSE 70–108; RESP 18–20; TEMP 98–98.6; O2SAT 94–98
[2017-03-17] MEDS: DILTIAZEM INJ 125 MG in SODIUM CHLORIDE 0.9% INJ 100 ML IV PRN (06:29)
[2017-03-17] MEDS: SODIUM CHLORIDE 0.9% FLUSH 10 ML FLUSH IV FLUSH SCH ×2 (08:38→20:43)
[2017-03-17] MEDS: POLYETHYLENE GLYCOL 17 GM PKG PO SCH (08:38)
[2017-03-17] MEDS: CARVEDILOL 12.5 MG TAB PO SCH ×2 (08:38→20:43)
[2017-03-17] MEDS: LISINOPRIL 10 MG TAB PO SCH ×2 (08:38→20:43)
[2017-03-17] MEDS: ASPIRIN EC 81 MG TABEC PO SCH (08:38)
[2017-03-17 11:43] LABS: BICARBONATE 25.5 MEQ/L (21.0-32.0); CALCIUM 8.8 MG/DL (8.5-10.1); CREATININE 0.83 MG/DL (0.60-1.30)
--- NOTE | 2017-03-17 15:29 | HHI.PR ---
Subjective Remarks 41-year-old male presents to the emergency department with a 2 day history of abdominal pain and accompanying nausea/vomiting/diarrhea. The patient reports he came to the emergency department for evaluation of this abdominal pain. While in the ED, he was noted to be tachycardic and EKG showed atrial fibrillation with rapid ventricular response. The patient was also hypertensive to 202/145. He states he developed shortness of breath and heart palpitations both of which were very disconcerting to him. Patient denies any associated chest pain. He has never had anything like this occur in the past. He has no significant medical history although has not been to a doctor in "years." 03-15 Follow-up for atrial fibrillation and hypertensive urgency Patient stated that shortness of breathing has improved. Continues to complain about right upper quadrant pain. He stated that pain worsens with oral intake. He also has constipation. Positive for emesis. Denies any chest pain, palpitation, lightheadedness or dizziness. 03-16 in no acute distress. has occasional cough and sob. no chest pain. still on Cardizem drip. 03-17 remains on Cardizem drip Denies any chest pain Has some shortness of breath and some cough on occasion Denies any tobacco or illicits Objective Vitals Vital Signs Date Time Temp Pulse Resp B/P (MAP) Pulse Ox O2 Delivery O2 Flow Rate FiO2 03/17/17 13:26 138/62 (87) 03/17/17 12:02 98.6 92 20 140/92 (108) 97 03/17/17 08:36 154/90 (111) 03/17/17 08:02 98.5 95 20 154/90 (111) 94 03/17/17 06:29 95 148/102 03/17/17 05:50 98.0 95 18 148/102 (117) 94 03/17/17 04:00 97 03/17/17 00:00 92 03/16/17 23:40 98.8 100 18 172/110 (130) 95 03/16/17 20:00 121 03/16/17 20:00 Nasal Cannula 2.00 03/16/17 18:55 Nasal Cannula 2.00 03/16/17 16:27 Nasal Cannula 2.00 03/16/17 16:00 90 03/16/17 16:00 98.5 92 20 180/82 (114) 95 I/O 03/16/17 03/16/17 03/16/17 03/17/17 03/17/17 03/17/17 06:59 14:59 22:59 06:59 14:59 22:59 Intake Total 360 ml 480 ml 240 ml Output Total 500 ml 400 ml Balance -140 ml 480 ml -160 ml Intake Oral 360 ml 480 ml 240 ml Output Urine Total 500 ml 400 ml # Voids 1 4 2 # Bowel Movements 0 0 Result Diagram: 03/15/17 0242 03/17/17 1005 Other Results Laboratory Tests Test 03/14/17 16:02 03/14/17 20:26 03/15/17 02:42 03/15/17 09:25 White Blood Count 6.6 TH/MM3 5.6 TH/MM3 Red Blood Count 4.32 MIL/MM3 3.77 MIL/MM3 Hemoglobin 15.0 GM/DL 13.2 GM/DL Hematocrit 44.7 % 39.0 % Mean Corpuscular Volume 103.4 FL 103.6 FL Mean Corpuscular Hemoglobin 34.8 PG 35.1 PG Mean Corpuscular Hemoglobin Concent 33.7 % 33.9 % Red Cell Distribution Width 13.8 % 14.1 % Platelet Count 176 TH/MM3 163 TH/MM3 Mean Platelet Volume 10.5 FL 10.4 FL Neutrophils (%) (Auto) 46.6 % 41.8 % Lymphocytes (%) (Auto) 42.8 % 47.9 % Monocytes (%) (Auto) 9.5 % 8.9 % Eosinophils (%) (Auto) 0.6 % 0.7 % Basophils (%) (Auto) 0.5 % 0.7 % Neutrophils # (Auto) 3.1 TH/MM3 2.4 TH/MM3 Lymphocytes # (Auto) 2.8 TH/MM3 2.7 TH/MM3 Monocytes # (Auto) 0.6 TH/MM3 0.5 TH/MM3 Eosinophils # (Auto) 0.0 TH/MM3 0.0 TH/MM3 Basophils # (Auto) 0.0 TH/MM3 0.0 TH/MM3 CBC Comment DIFF FINAL DIFF FINAL Differential Comment Urine Color YELLOW Urine Turbidity CLEAR Urine pH 6.5 Urine Specific [place] 1.023 Urine Protein 100 mg/dL Urine Glucose (UA) NEG mg/dL Urine Ketones NEG mg/dL Urine Occult Blood SMALL Urine Nitrite NEG Urine Bilirubin NEG Urine Urobilinogen 2.0 MG/DL Urine Leukocyte Esterase NEG Urine RBC 9 /hpf Urine WBC 2 /hpf Urine Squamous Epithelial Cells <1 /hpf Urine Bacteria RARE /hpf Urine Mucus MANY /lpf Microscopic Urinalysis Comment CULT NOT INDICATED Blood Urea Nitrogen 13 MG/DL 12 MG/DL Creatinine 1.19 MG/DL 0.88 MG/DL Random Glucose 97 MG/DL 110 MG/DL Total Protein 8.2 GM/DL Albumin 4.1 GM/DL Calcium Level 9.3 MG/DL 8.2 MG/DL Alkaline Phosphatase 68 U/L Aspartate Amino Transf (AST/SGOT) 22 U/L Alanine Aminotransferase (ALT/SGPT) 28 U/L Total Bilirubin 1.6 MG/DL Sodium Level 138 MEQ/L 139 MEQ/L Potassium Level 3.0 MEQ/L 3.6 MEQ/L Chloride Level 104 MEQ/L 107 MEQ/L Carbon Dioxide Level 26.2 MEQ/L 25.3 MEQ/L Anion Gap 8 MEQ/L 7 MEQ/L Estimat Glomerular Filtration Rate 82 ML/MIN 117 ML/MIN B-Type Natriuretic Peptide 418 PG/ML Lipase 61 U/L Troponin I 0.07 NG/ML 0.07 NG/ML 0.06 NG/ML Magnesium Level 2.0 MG/DL Total Creatine Kinase 133 U/L 115 U/L Test 03/17/17 10:05 Blood Urea Nitrogen 10 MG/DL Creatinine 0.83 MG/DL Random Glucose 125 MG/DL Calcium Level 8.8 MG/DL Sodium Level 140 MEQ/L Potassium Level 3.4 MEQ/L Chloride Level 106 MEQ/L Carbon Dioxide Level 25.5 MEQ/L Anion Gap 9 MEQ/L Estimat Glomerular Filtration Rate 125 ML/MIN Imaging Last Impressions Gall Bladder Ultrasound 03/16/17 0000 Signed Impressions: Service Date/Time: Thursday, March 16, 2017 07:56 - CONCLUSION: 1. Right pleural effusion. 2. Otherwise, unremarkable exam. Gerard Ureña Jr., MD Ribs X-Ray 03/14/17 0000 Signed Impressions: Service Date/Time: Tuesday, March 14, 2017 17:40 - CONCLUSION: 1. Degenerative spurring of the dorsal spine. No fracture. 2. Lungs are clear. 3. Compensated cardiomegaly. Mukesh Patel MD CT Angiography 03/14/17 0000 Signed Impressions: Service Date/Time: Tuesday, March 14, 2017 20:44 - CONCLUSION: 1. Negative for pulmonary embolus. Bilateral pleural effusions. Multiple calcified mediastinal and axillary lymph nodes with axillary adenopathy on the left side up to 1.8 cm in diameter. Patrick Weston MD Objective Remarks GENERAL: Awake alert and oriented 3 talkative and cooperative appears stated age SKIN: Warm and dry. HEAD: Atraumatic. Normocephalic. EYES: Pupils equal and round. No scleral icterus. No injection or drainage. Extraocular muscles intact ENT: No nasal bleeding or discharge. Mucous membranes pink and moist. Tongue is midline NECK: Trachea midline. No JVD. Supple CARDIOVASCULAR: IRRegular rate and rhythm. S1 and S2 no S3 or S4 RESPIRATORY: No accessory muscle use. Clear to auscultation. Breath sounds equal bilaterally. GASTROINTESTINAL: Abdomen soft, non-tender, nondistended. Hepatic and splenic margins not palpable. MUSCULOSKELETAL: Extremities without clubbing, cyanosis, or edema. No obvious deformities. NEUROLOGICAL: Awake and alert. No obvious cranial nerve deficits. Motor grossly within normal limits. Five out of 5 muscle strength in the arms and legs. Normal speech. PSYCHIATRIC: Appropriate mood and affect; insight and judgment normal. Medications and IVs Current Medications Potassium Chloride (KCl) 60 meq ONCE ONCE PO Last administered on 03/14/17 17 :56; Start 03/14/17 at 17:15; Stop 03/14/17 at 17:16; Status DC Ketorolac Tromethamine (Toradol Inj) 30 mg ONCE ONCE IV PUSH Last administered on 03/14/17 17:56; Start 03/14/17 at 17:15; Stop 03/14/17 at 17:16 ; Status DC Sodium Chloride 1,000 ml @ 999 mls/hr BOLUS ONCE IV Last administered on 03/14 17:56; Start 03/14/17 at 17:15; Stop 03/14/17 at 18:39; Status DC Ondansetron HCl (Zofran Inj) 4 mg ONCE ONCE IV PUSH Last administered on 17:56; Start 03/14/17 at 17:30; Stop 03/14/17 at 17:31; Status DC Lorazepam (Ativan Inj) 1 mg ONCE ONCE IV PUSH Last administered on 1/24/18at 20:15; Start 03/14/17 at 20:00; Stop 03/14/17 at 20:08; Status DC Diltiazem HCl (Cardizem Inj) 31 mg BOLUS ONCE IV PUSH Last administered on at 20:15; Start 03/14/17 at 20:15; Stop 03/14/17 at 20:16; Status DC Iohexol (Omnipaque 350 Inj) 70 ml STK-MED ONCE IVCONTRAST Last administered on 03/14/17at 20:55; Start 03/14/17 at 20:55; Stop 03/14/17 at 20:56; Status DC Hydralazine HCl (Apresoline Inj) 10 mg ONCE ONCE IV PUSH Last administered on 03/14/17at 21:26; Start 03/14/17 at 21:15; Stop 03/14/17 at 21:19; Status DC Diltiazem HCl 125 mg/Sodium Chloride 125 ml @ 5 mls/hr TITRATE PRN IV Tachycardia Last administered on 03/17/17at 06:29; Start 03/14/17 at 22:00 Sodium Chloride (NS Flush) 2 ml UNSCH PRN IV FLUSH FLUSH AFTER USING IV ACCESS ; Start 03/14/17 at 22:00 Sodium Chloride (NS Flush) 2 ml BID IV FLUSH Last administered on 03/17/17at 08: 38; Start 03/15/17 at 09:00 Acetaminophen (Tylenol) 650 mg Q4H PRN PO TEMP > 100.4/DANIELS Last administered on 03/16/17at 23:00; Start 03/14/17 at 22:00 Enoxaparin Sodium (Lovenox Inj) 40 mg Q24H SQ Last administered on 03/16/17at 23 :03; Start 03/14/17 at 22:00 Naloxone HCl (Narcan Inj) 0.4 mg UNSCH PRN IV PUSH SEE LABEL COMMENTS; Start at 22:00 Ibuprofen (Motrin) 400 mg ONCE ONCE PO Last administered on 03/15/17at 06:43; Start 03/15/17 at 06:30; Stop 03/15/17 at 06:31; Status DC Aspirin (Ecotrin Ec) 81 mg DAILY PO Last administered on 03/17/17at 08:38; Start 03/15/17 at 16:00 Polyethylene Glycol (Miralax) 17 gm DAILY PO Last administered on 03/17/17at 08: 38; Start 03/15/17 at 16:00 Enalaprilat (Vasotec Inj) 2.5 mg Q6H PRN IV PUSH SBP>180 or DBP>100 Last administered on 03/16/17at 13:37; Start 03/15/17 at 18:45 Amlodipine Besylate (Norvasc) 5 mg DAILY PO Last administered on 03/16/17at 08: 37; Start 03/15/17 at 19:00; Stop 03/16/17 at 19:21; Status DC Lisinopril (Prinivil) 10 mg Q12HR PO Last administered on 03/17/17at 08:38; Start 03/16/17 at 21:00 Carvedilol (Coreg) 12.5 mg Q12HR PO Last administered on 03/17/17at 08:38; Start 03/16/17 at 21:00 A/P Assessment and Plan 1. Atrial fibrillation with rapid ventricular response- new onset. continue with Cardizem drip. on Lovenox and aspirin. echo pending. awaiting cardiology follow-up and recommendations; WILL NEED RADHA AND CARDIOVERSION 2. Hypertensive urgency BP elevated to 202/145 in the emergency department Improving Diltiazem drip as above 3. Elevated troponin Troponin elevated to 0.07 and flat. Most likely secondary to ATRIAL fibrillation with RVR. WILL NEED RADHA AND CARDIOVERSION 4. Abdominal pain with nausea/vomiting - ultrasound the gallbladder pending.- NEGATIVE STUDY 5. Hypokalemia Replenish as needed. 6. Constipation -laxatives as needed. Has family history of high blood pressure and diabetes Discharge Planning PENDING CARDIAC CLEARANCE STILL ON CARDIZEM DRIP Juan Antonio Hu DO Mar 17, 2017 15:29
--- NOTE | 2017-03-17 16:37 | PD.CARD.PN ---
Subjective Subjective Remarks No CP, mild SOB, feels better Objective Medications Current Medications Medications (Trade) Dose Ordered Sig/Gibson Route Start Time Stop Time Status Last Admin Diltiazem HCl 125 mg/Sodium Chloride 125 ml @ 5 mls/hr TITRATE PRN IV 03/14/17 22:00 03/17/17 06:29 (NS Flush) 2 ml UNSCH PRN IV FLUSH 03/14/17 22:00 (NS Flush) 2 ml BID IV FLUSH 03/15/17 09:00 03/17/17 08:38 (Tylenol) 650 mg Q4H PRN PO 03/14/17 22:00 03/16/17 23:00 (Narcan Inj) 0.4 mg UNSCH PRN IV PUSH 03/14/17 22:00 (Ecotrin Ec) 81 mg DAILY PO 03/15/17 16:00 03/17/17 08:38 (Miralax) 17 gm DAILY PO 03/15/17 16:00 03/17/17 08:38 (Vasotec Inj) 2.5 mg Q6H PRN IV PUSH 03/15/17 18:45 03/16/17 13:37 (Prinivil) 10 mg Q12HR PO 03/16/17 21:00 03/17/17 08:38 (Coreg) 12.5 mg Q12HR PO 03/16/17 21:00 03/17/17 08:38 (Lovenox Inj) 120 mg BID SQ 03/17/17 21:00 Vital Signs / I&O Vital Signs Date Time Temp Pulse Resp B/P (MAP) Pulse Ox O2 Delivery O2 Flow Rate FiO2 03/17/17 13:26 138/62 (87) 03/17/17 12:02 98.6 92 20 140/92 (108) 97 03/17/17 08:36 154/90 (111) 03/17/17 08:02 98.5 95 20 154/90 (111) 94 03/17/17 06:29 95 148/102 03/17/17 05:50 98.0 95 18 148/102 (117) 94 03/17/17 04:00 97 03/17/17 00:00 92 03/16/17 23:40 98.8 100 18 172/110 (130) 95 03/16/17 20:00 121 03/16/17 20:00 Nasal Cannula 2.00 03/16/17 18:55 Nasal Cannula 2.00 I/O 03/16/17 03/16/17 03/16/17 03/17/17 03/17/17 03/17/17 07:00 15:00 23:00 07:00 15:00 23:00 Intake Total 360 ml 480 ml 240 ml Output Total 500 ml 400 ml Balance -140 ml 480 ml -160 ml Intake Oral 360 ml 480 ml 240 ml Output Urine Total 500 ml 400 ml # Voids 1 4 2 # Bowel Movements 0 0 Physical Exam GENERAL: SKIN: Warm and dry. HEAD: Normocephalic. EYES: No scleral icterus. No injection or drainage. NECK: Supple, trachea midline. No JVD or lymphadenopathy. CARDIOVASCULAR: Irregular rate and rhythm, without murmurs, gallops, or rubs. RESPIRATORY: Breath sounds equal bilaterally. No accessory muscle use. GASTROINTESTINAL: Abdomen soft, non-tender, nondistended. MUSCULOSKELETAL: No cyanosis, or edema. . Laboratory Laboratory Tests Test 03/17/17 10:05 Blood Urea Nitrogen 10 MG/DL Creatinine 0.83 MG/DL Random Glucose 125 MG/DL Calcium Level 8.8 MG/DL Sodium Level 140 MEQ/L Potassium Level 3.4 MEQ/L Chloride Level 106 MEQ/L Carbon Dioxide Level 25.5 MEQ/L Anion Gap 9 MEQ/L Estimat Glomerular Filtration Rate 125 ML/MIN Assessment and Plan Problem List: (1) New onset a-fib ICD Codes: I48.91 - Unspecified atrial fibrillation Status: Acute (2) Hypertensive emergency ICD Codes: I16.1 - Hypertensive emergency Status: Acute (3) Abdominal pain ICD Codes: R10.9 - Unspecified abdominal pain (4) Nausea & vomiting ICD Codes: R11.2 - Nausea with vomiting, unspecified Assessment and Plan No new card issues. Still in a fib with RVR. Echo with moderate LV dysfunction. Continue tx for CHF including beta court and JOSELITO-I. Start anticoagulation and schedule RADHA and cardioversion on Sun. Dontrell Arriaga MD Mar 17, 2017 16:37
[2017-03-17] MEDS: RIVAROXABAN 20 MG TAB PO SCH (20:42)
[2017-03-17] MEDS ORDERED: ENOXAPARIN SODIUM 120 MG/0.8 ML SYRINGE SQ SCH (21:00)
[2017-03-18] VITALS (12 sets, daily range): BP systolic 138–160; BP diastolic 90–106; PULSE 85–110; RESP 18–21; TEMP 97.8–98.4; O2SAT 97
[2017-03-18] MEDS: POLYETHYLENE GLYCOL 17 GM PKG PO SCH (08:28)
[2017-03-18] MEDS: CARVEDILOL 12.5 MG TAB PO SCH ×2 (08:28→20:53)
[2017-03-18] MEDS: LISINOPRIL 10 MG TAB PO SCH ×2 (08:28→20:52)
[2017-03-18] MEDS: SODIUM CHLORIDE 0.9% FLUSH 10 ML FLUSH IV FLUSH SCH ×2 (08:29→20:52)
[2017-03-18 10:20] LABS: AUTOMATED NEUTROPHIL # 2.7 TH/MM3 (1.8-7.7); BASOPHIL % 0.6 % (0.0-2.0); EOSINOPHIL # 0.1 TH/MM3 (0-0.4); EOSINOPHIL % 1.7 % (0.0-4.0); HEMATOCRIT 39.1 % (39.0-51.0); HEMOGLOBIN 13.2 GM/DL (13.0-17.0); LYMPH % 42.6 % (9.0-44.0); LYMPHOCYTE # 2.5 TH/MM3 (1.0-4.8); MEAN CORPUSCULAR HEMOGLOBIN 35.3 PG (27.0-34.0); MEAN CORPUSCULAR HGB CONC 33.7 % (32.0-36.0); MEAN PLATELET VOLUME 9.7 FL (7.0-11.0); MONO % 8.1 % (0.0-8.0); MONOCYTE # 0.5 TH/MM3 (0-0.9); PLATELET COUNT 153 TH/MM3 (150-450); RED BLOOD COUNT 3.73 MIL/MM3 (4.50-5.90); RED CELL DISTRIBUTION WIDTH 14.1 % (11.6-17.2); WHITE BLOOD COUNT 5.8 TH/MM3 (4.0-11.0)
[2017-03-18 10:49] LABS: ALBUMIN 3.1 GM/DL (3.4-5.0); AST (GOT) 17 U/L (15-37); BICARBONATE 28.6 MEQ/L (21.0-32.0); BLOOD UREA NITROGEN 12 MG/DL (7-18); CALCIUM 8.7 MG/DL (8.5-10.1); CHLORIDE 104 MEQ/L (98-107); CREATININE 1.02 MG/DL (0.60-1.30); GLOMERULAR FILTRATION RATE 99 ML/MIN (>89); GLUCOSE,RANDOM 101 MG/DL (74-106); MAGNESIUM 2.1 MG/DL (1.5-2.5); SODIUM (NA) 139 MEQ/L (136-145)
[2017-03-18 10:50] LABS: ALT (GPT) 24 U/L (12-78); PHOSPHORUS 3.8 MG/DL (2.5-4.9)
[2017-03-18 10:58] LABS: ALKALINE PHOSPHATASE 62 U/L (45-117); TOTAL BILIRUBIN ADULT 1.1 MG/DL (0.2-1.0); TOTAL PROTEIN 6.8 GM/DL (6.4-8.2)
[2017-03-18 11:56] LABS: HEMOGLOBIN A1C 5.1 % (4.3-6.0)
--- NOTE | 2017-03-18 12:32 | HHI.PR ---
Subjective Remarks 41-year-old male presents to the emergency department with a 2 day history of abdominal pain and accompanying nausea/vomiting/diarrhea. The patient reports he came to the emergency department for evaluation of this abdominal pain. While in the ED, he was noted to be tachycardic and EKG showed atrial fibrillation with rapid ventricular response. The patient was also hypertensive to 202/145. He states he developed shortness of breath and heart palpitations both of which were very disconcerting to him. Patient denies any associated chest pain. He has never had anything like this occur in the past. He has no significant medical history although has not been to a doctor in "years." 03-15 Follow-up for atrial fibrillation and hypertensive urgency Patient stated that shortness of breathing has improved. Continues to complain about right upper quadrant pain. He stated that pain worsens with oral intake. He also has constipation. Positive for emesis. Denies any chest pain, palpitation, lightheadedness or dizziness. 03-16 in no acute distress. has occasional cough and sob. no chest pain. still on Cardizem drip. 03-17 remains on Cardizem drip Denies any chest pain Has some shortness of breath and some cough on occasion Denies any tobacco or illicits 03-18 OFF CARDIZEM DRIP HAS SOME SOB ON OCCASION FOR RADHA AND CARDIOVERSION TOMORROW ADD INCENTIVE SPIROMETRY Objective Vitals Vital Signs Date Time Temp Pulse Resp B/P (MAP) Pulse Ox O2 Delivery O2 Flow Rate FiO2 03/18/17 08:02 97.8 96 20 140/92 (108) 97 03/18/17 08:00 88 03/18/17 07:00 Nasal Cannula 2.00 03/18/17 04:00 97 03/18/17 04:00 Nasal Cannula 2.00 03/18/17 04:00 98.4 110 18 146/98 (114) 97 03/18/17 00:00 Nasal Cannula 2.00 03/18/17 00:00 99 03/18/17 00:00 98.3 106 18 160/106 (124) 97 03/17/17 20:00 98.0 108 18 156/100 (118) 97 03/17/17 20:00 83 03/17/17 20:00 Nasal Cannula 2.00 03/17/17 16:05 98.5 72 20 138/80 (99) 98 03/17/17 16:00 70 03/17/17 13:26 138/62 (87) I/O 03/17/17 03/17/17 03/17/17 03/18/17 03/18/17 03/18/17 07:00 15:00 23:00 07:00 15:00 23:00 Intake Total 240 ml 765 ml 240 ml Output Total 400 ml 425 ml Balance -160 ml 340 ml 240 ml Intake Oral 240 ml 720 ml 240 ml IV Total 45 ml Output Urine Total 400 ml 425 ml # Voids 2 3 3 # Bowel Movements 0 0 1 Result Diagram: 03/18/17 0917 03/18/17 0917 Other Results Laboratory Tests Test 03/17/17 10:05 03/18/17 09:17 Blood Urea Nitrogen 10 MG/DL 12 MG/DL Creatinine 0.83 MG/DL 1.02 MG/DL Random Glucose 125 MG/DL 101 MG/DL Calcium Level 8.8 MG/DL 8.7 MG/DL Sodium Level 140 MEQ/L 139 MEQ/L Potassium Level 3.4 MEQ/L 4.0 MEQ/L Chloride Level 106 MEQ/L 104 MEQ/L Carbon Dioxide Level 25.5 MEQ/L 28.6 MEQ/L Anion Gap 9 MEQ/L 6 MEQ/L Estimat Glomerular Filtration Rate 125 ML/MIN 99 ML/MIN White Blood Count 5.8 TH/MM3 Red Blood Count 3.73 MIL/MM3 Hemoglobin 13.2 GM/DL Hematocrit 39.1 % Mean Corpuscular Volume 105.0 FL Mean Corpuscular Hemoglobin 35.3 PG Mean Corpuscular Hemoglobin Concent 33.7 % Red Cell Distribution Width 14.1 % Platelet Count 153 TH/MM3 Mean Platelet Volume 9.7 FL Neutrophils (%) (Auto) 47.0 % Lymphocytes (%) (Auto) 42.6 % Monocytes (%) (Auto) 8.1 % Eosinophils (%) (Auto) 1.7 % Basophils (%) (Auto) 0.6 % Neutrophils # (Auto) 2.7 TH/MM3 Lymphocytes # (Auto) 2.5 TH/MM3 Monocytes # (Auto) 0.5 TH/MM3 Eosinophils # (Auto) 0.1 TH/MM3 Basophils # (Auto) 0.0 TH/MM3 CBC Comment DIFF FINAL Differential Comment Total Protein 6.8 GM/DL Albumin 3.1 GM/DL Phosphorus Level 3.8 MG/DL Magnesium Level 2.1 MG/DL Alkaline Phosphatase 62 U/L Aspartate Amino Transf (AST/SGOT) 17 U/L Alanine Aminotransferase (ALT/SGPT) 24 U/L Total Bilirubin 1.1 MG/DL Free Thyroxine 1.10 NG/DL Thyroid Stimulating Hormone 3rd Gen 1.530 uIU/ML Imaging Last Impressions Gall Bladder Ultrasound 03/16/17 0000 Signed Impressions: Service Date/Time: Thursday, March 16, 2017 07:56 - CONCLUSION: 1. Right pleural effusion. 2. Otherwise, unremarkable exam. Gerard Ureña Jr., MD Ribs X-Ray 03/14/17 0000 Signed Impressions: Service Date/Time: Tuesday, March 14, 2017 17:40 - CONCLUSION: 1. Degenerative spurring of the dorsal spine. No fracture. 2. Lungs are clear. 3. Compensated cardiomegaly. Mukesh Patel MD CT Angiography 03/14/17 0000 Signed Impressions: Service Date/Time: Tuesday, March 14, 2017 20:44 - CONCLUSION: 1. Negative for pulmonary embolus. Bilateral pleural effusions. Multiple calcified mediastinal and axillary lymph nodes with axillary adenopathy on the left side up to 1.8 cm in diameter. Patrick Weston MD Objective Remarks GENERAL: Awake alert and oriented 3 talkative and cooperative appears stated age SKIN: Warm and dry. HEAD: Atraumatic. Normocephalic. EYES: Pupils equal and round. No scleral icterus. No injection or drainage. Extraocular muscles intact ENT: No nasal bleeding or discharge. Mucous membranes pink and moist. Tongue is midline NECK: Trachea midline. No JVD. Supple CARDIOVASCULAR: IRRegular rate and rhythm. S1 and S2 no S3 or S4 RESPIRATORY: No accessory muscle use. Clear to auscultation. Breath sounds equal bilaterally. GASTROINTESTINAL: Abdomen soft, non-tender, nondistended. Hepatic and splenic margins not palpable. MUSCULOSKELETAL: Extremities without clubbing, cyanosis, or edema. No obvious deformities. NEUROLOGICAL: Awake and alert. No obvious cranial nerve deficits. Motor grossly within normal limits. Five out of 5 muscle strength in the arms and legs. Normal speech. PSYCHIATRIC: Appropriate mood and affect; insight and judgment normal. Medications and IVs Current Medications Potassium Chloride (KCl) 60 meq ONCE ONCE PO Last administered on 03/14/17at 17 :56; Start 1/24/18 at 17:15; Stop 03/14/17 at 17:16; Status DC Ketorolac Tromethamine (Toradol Inj) 30 mg ONCE ONCE IV PUSH Last administered on 03/14/17at 17:56; Start 03/14/17 at 17:15; Stop 03/14/17 at 17:16 ; Status DC Sodium Chloride 1,000 ml @ 999 mls/hr BOLUS ONCE IV Last administered on 03/14at 17:56; Start 03/14/17 at 17:15; Stop 03/14/17 at 18:39; Status DC Ondansetron HCl (Zofran Inj) 4 mg ONCE ONCE IV PUSH Last administered on at 17:56; Start 03/14/17 at 17:30; Stop 03/14/17 at 17:31; Status DC Lorazepam (Ativan Inj) 1 mg ONCE ONCE IV PUSH Last administered on 03/14/17at 20:15; Start 03/14/17 at 20:00; Stop 03/14/17 at 20:08; Status DC Diltiazem HCl (Cardizem Inj) 31 mg BOLUS ONCE IV PUSH Last administered on at 20:15; Start 03/14/17 at 20:15; Stop 03/14/17 at 20:16; Status DC Iohexol (Omnipaque 350 Inj) 70 ml STK-MED ONCE IVCONTRAST Last administered on 03/14/17at 20:55; Start 03/14/17 at 20:55; Stop 03/14/17 at 20:56; Status DC Hydralazine HCl (Apresoline Inj) 10 mg ONCE ONCE IV PUSH Last administered on 03/14/17at 21:26; Start 03/14/17 at 21:15; Stop 03/14/17 at 21:19; Status DC Diltiazem HCl 125 mg/Sodium Chloride 125 ml @ 5 mls/hr TITRATE PRN IV Tachycardia Last administered on 03/17/17at 06:29; Start 03/14/17 at 22:00 Sodium Chloride (NS Flush) 2 ml UNSCH PRN IV FLUSH FLUSH AFTER USING IV ACCESS ; Start 03/14/17 at 22:00 Sodium Chloride (NS Flush) 2 ml BID IV FLUSH Last administered on 03/18/17at 08: 29; Start 03/15/17 at 09:00 Acetaminophen (Tylenol) 650 mg Q4H PRN PO TEMP > 100.4/DANIELS Last administered on 03/16/17at 23:00; Start 03/14/17 at 22:00 Enoxaparin Sodium (Lovenox Inj) 40 mg Q24H SQ Last administered on 03/16/17at 23 :03; Start 03/14/17 at 22:00; Stop 03/17/17 at 15:30; Status DC Naloxone HCl (Narcan Inj) 0.4 mg UNSCH PRN IV PUSH SEE LABEL COMMENTS; Start at 22:00 Ibuprofen (Motrin) 400 mg ONCE ONCE PO Last administered on 03/15/17at 06:43; Start 03/15/17 at 06:30; Stop 03/15/17 at 06:31; Status DC Aspirin (Ecotrin Ec) 81 mg DAILY PO Last administered on 03/17/17at 08:38; Start 03/15/17 at 16:00; Stop 03/17/17 at 16:40; Status DC Polyethylene Glycol (Miralax) 17 gm DAILY PO Last administered on 03/18/17at 08: 28; Start 03/15/17 at 16:00 Enalaprilat (Vasotec Inj) 2.5 mg Q6H PRN IV PUSH SBP>180 or DBP>100 Last administered on 03/16/17at 13:37; Start 03/15/17 at 18:45 Amlodipine Besylate (Norvasc) 5 mg DAILY PO Last administered on 03/16/17at 08: 37; Start 03/15/17 at 19:00; Stop 03/16/17 at 19:21; Status DC Lisinopril (Prinivil) 10 mg Q12HR PO Last administered on 03/17/17at 08:38; Start 03/16/17 at 21:00; Stop 03/17/17 at 16:41; Status DC Carvedilol (Coreg) 12.5 mg Q12HR PO Last administered on 03/17/17at 08:38; Start 03/16/17 at 21:00; Stop 03/17/17 at 16:41; Status DC Enoxaparin Sodium (Lovenox Inj) 120 mg BID SQ ; Start 03/17/17 at 21:00; Stop at 21:00; Status DC Rivaroxaban (Xarelto) 20 mg HS PO Last administered on 03/17/17at 20:42; Start 03/17/17 at 21:00 Carvedilol (Coreg) 25 mg Q12HR PO Last administered on 03/18/17at 08:28; Start 03/17/17 at 21:00 Lisinopril (Prinivil) 20 mg Q12HR PO Last administered on 03/18/17at 08:28; Start 03/17/17 at 21:00 A/P Assessment and Plan 1. Atrial fibrillation with rapid ventricular response- new onset. continue with Cardizem drip. on Lovenox and aspirin. echo pending. awaiting cardiology follow-up and recommendations; WILL NEED RADHA AND CARDIOVERSION TOMORROW 2. Hypertensive urgency BP elevated to 202/145 in the emergency department Improving Diltiazem drip -WEANED OFF 3. Elevated troponin Troponin elevated to 0.07 and flat. Most likely secondary to ATRIAL fibrillation with RVR. WILL NEED RADHA AND CARDIOVERSION 03-19 4. Abdominal pain with nausea/vomiting - ultrasound the gallbladder pending.- NEGATIVE STUDY 5. Hypokalemia Replenish as needed. 6. Constipation -laxatives as needed. Has family history of high blood pressure and diabetes INCENTIVE SPIROMETRY Discharge Planning PENDING CARDIAC CLEARANCE ON LOVENOX WILL NEED ANTICOAGULATION AT DISCHARGE Juan Antonio Hu DO Mar 18, 2017 12:32
--- NOTE | 2017-03-18 17:05 | PD.CARD.PN ---
Subjective Subjective Remarks No CP or SOB, feels better Objective Medications Current Medications Medications (Trade) Dose Ordered Sig/Gibson Route Start Time Stop Time Status Last Admin Diltiazem HCl 125 mg/Sodium Chloride 125 ml @ 5 mls/hr TITRATE PRN IV 03/14/17 22:00 03/17/17 06:29 (NS Flush) 2 ml UNSCH PRN IV FLUSH 03/14/17 22:00 (NS Flush) 2 ml BID IV FLUSH 03/15/17 09:00 03/18/17 08:29 (Tylenol) 650 mg Q4H PRN PO 03/14/17 22:00 03/16/17 23:00 (Narcan Inj) 0.4 mg UNSCH PRN IV PUSH 03/14/17 22:00 (Miralax) 17 gm DAILY PO 03/15/17 16:00 03/18/17 08:28 (Vasotec Inj) 2.5 mg Q6H PRN IV PUSH 03/15/17 18:45 03/16/17 13:37 (Xarelto) 20 mg HS PO 03/17/17 21:00 03/17/17 20:42 (Coreg) 25 mg Q12HR PO 03/17/17 21:00 03/18/17 08:28 (Prinivil) 20 mg Q12HR PO 03/17/17 21:00 03/18/17 08:28 Vital Signs / I&O Vital Signs Date Time Temp Pulse Resp B/P (MAP) Pulse Ox O2 Delivery O2 Flow Rate FiO2 03/18/17 16:51 97 03/18/17 12:02 98.1 96 21 138/90 (106) 97 03/18/17 08:02 97.8 96 20 140/92 (108) 97 03/18/17 08:00 88 03/18/17 07:00 Nasal Cannula 2.00 03/18/17 04:00 97 03/18/17 04:00 Nasal Cannula 2.00 03/18/17 04:00 98.4 110 18 146/98 (114) 97 03/18/17 00:00 Nasal Cannula 2.00 03/18/17 00:00 99 03/18/17 00:00 98.3 106 18 160/106 (124) 97 03/17/17 20:00 98.0 108 18 156/100 (118) 97 03/17/17 20:00 83 03/17/17 20:00 Nasal Cannula 2.00 I/O 03/17/17 03/17/17 03/17/17 03/18/17 03/18/17 03/18/17 07:00 15:00 23:00 07:00 15:00 23:00 Intake Total 240 ml 765 ml 240 ml Output Total 400 ml 425 ml Balance -160 ml 340 ml 240 ml Intake Oral 240 ml 720 ml 240 ml IV Total 45 ml Output Urine Total 400 ml 425 ml # Voids 2 3 3 # Bowel Movements 0 0 1 Physical Exam GENERAL: SKIN: Warm and dry. HEAD: Normocephalic. EYES: No scleral icterus. No injection or drainage. NECK: Supple, trachea midline. No JVD or lymphadenopathy. CARDIOVASCULAR: Irregular rate and rhythm, without murmurs, gallops, or rubs. RESPIRATORY: Breath sounds equal bilaterally. No accessory muscle use. GASTROINTESTINAL: Abdomen soft, non-tender, nondistended. MUSCULOSKELETAL: No cyanosis, or edema. . Laboratory Laboratory Tests Test 03/18/17 09:17 White Blood Count 5.8 TH/MM3 Red Blood Count 3.73 MIL/MM3 Hemoglobin 13.2 GM/DL Hematocrit 39.1 % Mean Corpuscular Volume 105.0 FL Mean Corpuscular Hemoglobin 35.3 PG Mean Corpuscular Hemoglobin Concent 33.7 % Red Cell Distribution Width 14.1 % Platelet Count 153 TH/MM3 Mean Platelet Volume 9.7 FL Neutrophils (%) (Auto) 47.0 % Lymphocytes (%) (Auto) 42.6 % Monocytes (%) (Auto) 8.1 % Eosinophils (%) (Auto) 1.7 % Basophils (%) (Auto) 0.6 % Neutrophils # (Auto) 2.7 TH/MM3 Lymphocytes # (Auto) 2.5 TH/MM3 Monocytes # (Auto) 0.5 TH/MM3 Eosinophils # (Auto) 0.1 TH/MM3 Basophils # (Auto) 0.0 TH/MM3 CBC Comment DIFF FINAL Differential Comment Blood Urea Nitrogen 12 MG/DL Creatinine 1.02 MG/DL Random Glucose 101 MG/DL Total Protein 6.8 GM/DL Albumin 3.1 GM/DL Calcium Level 8.7 MG/DL Phosphorus Level 3.8 MG/DL Magnesium Level 2.1 MG/DL Alkaline Phosphatase 62 U/L Aspartate Amino Transf (AST/SGOT) 17 U/L Alanine Aminotransferase (ALT/SGPT) 24 U/L Total Bilirubin 1.1 MG/DL Sodium Level 139 MEQ/L Potassium Level 4.0 MEQ/L Chloride Level 104 MEQ/L Carbon Dioxide Level 28.6 MEQ/L Anion Gap 6 MEQ/L Estimat Glomerular Filtration Rate 99 ML/MIN Hemoglobin A1c 5.1 % Free Thyroxine 1.10 NG/DL Thyroid Stimulating Hormone 3rd Gen 1.530 uIU/ML Assessment and Plan Problem List: (1) New onset a-fib ICD Codes: I48.91 - Unspecified atrial fibrillation Status: Acute (2) Hypertensive emergency ICD Codes: I16.1 - Hypertensive emergency Status: Acute (3) Abdominal pain ICD Codes: R10.9 - Unspecified abdominal pain (4) Nausea & vomiting ICD Codes: R11.2 - Nausea with vomiting, unspecified Assessment and Plan Stays in a fib. Echo with moderate LV dysfunction. Continue tx for CHF including beta court and JOSELITO-I. Started anticoagulation. Continue rate control. Will schedule RADHA and cardioversion tomorrow. Dontrell Arriaga MD Mar 18, 2017 17:05
[2017-03-18] MEDS: RIVAROXABAN 20 MG TAB PO SCH (20:52)
[2017-03-19] VITALS (8 sets, daily range): BP systolic 122–147; BP diastolic 64–98; PULSE 70–108; RESP 18–20; TEMP 97.4–98.7; O2SAT 96–99
[2017-03-19] MEDS: CARVEDILOL 12.5 MG TAB PO SCH ×2 (07:59→21:52)
[2017-03-19] MEDS: LISINOPRIL 10 MG TAB PO SCH ×2 (07:59→21:52)
[2017-03-19] MEDS: POLYETHYLENE GLYCOL 17 GM PKG PO SCH (08:01)
[2017-03-19] MEDS: SODIUM CHLORIDE 0.9% FLUSH 10 ML FLUSH IV FLUSH SCH ×2 (08:01→21:54)
[2017-03-19 08:42] LABS: AUTOMATED NEUTROPHIL # 2.5 TH/MM3 (1.8-7.7); BASOPHIL % 0.3 % (0.0-2.0); EOSINOPHIL # 0.1 TH/MM3 (0-0.4); EOSINOPHIL % 1.6 % (0.0-4.0); HEMOGLOBIN 13.2 GM/DL (13.0-17.0); LYMPH % 44.5 % (9.0-44.0); LYMPHOCYTE # 2.5 TH/MM3 (1.0-4.8); MEAN CELL VOLUME 104.5 FL (80.0-100.0); MEAN CORPUSCULAR HEMOGLOBIN 35.3 PG (27.0-34.0); MEAN CORPUSCULAR HGB CONC 33.7 % (32.0-36.0); MONO % 8.5 % (0.0-8.0); MONOCYTE # 0.5 TH/MM3 (0-0.9); NEUT % 45.1 % (16.0-70.0); PLATELET COUNT 170 TH/MM3 (150-450); RED BLOOD COUNT 3.73 MIL/MM3 (4.50-5.90); RED CELL DISTRIBUTION WIDTH 14.2 % (11.6-17.2); WHITE BLOOD COUNT 5.6 TH/MM3 (4.0-11.0)
[2017-03-19 08:48] LABS: INTERNATIONAL NORMALIZED RATIO 1.3 RATIO; PROTHROMBIN TIME - PATIENT 13.3 SEC (9.8-11.6)
[2017-03-19 09:13] LABS: ALBUMIN 3.1 GM/DL (3.4-5.0); ALT (GPT) 27 U/L (12-78); AST (GOT) 24 U/L (15-37); BICARBONATE 28.4 MEQ/L (21.0-32.0); BLOOD UREA NITROGEN 13 MG/DL (7-18); CALCIUM 8.7 MG/DL (8.5-10.1); CHLORIDE 104 MEQ/L (98-107); CREATININE 0.98 MG/DL (0.60-1.30); GLOMERULAR FILTRATION RATE 103 ML/MIN (>89); GLUCOSE,RANDOM 97 MG/DL (74-106); MAGNESIUM 2.4 MG/DL (1.5-2.5); PHOSPHORUS 4.1 MG/DL (2.5-4.9); SODIUM (NA) 138 MEQ/L (136-145)
[2017-03-19 09:16] LABS: ALKALINE PHOSPHATASE 65 U/L (45-117); TOTAL BILIRUBIN ADULT 0.7 MG/DL (0.2-1.0); TOTAL PROTEIN 6.8 GM/DL (6.4-8.2)
[2017-03-19] MEDS ORDERED: MIDAZOLAM HCL 5 MG/ML VIAL (1 ML) ONE (14:15)
[2017-03-19] MEDS ORDERED: PROPOFOL 200 MG/20 ML AMP ONE (14:15)
--- NOTE | 2017-03-19 15:59 | PD.CARD.PN ---
Subjective Subjective Remarks No CP or SOB, no c/o Objective Medications Current Medications Medications (Trade) Dose Ordered Sig/Gibson Route Start Time Stop Time Status Last Admin Diltiazem HCl 125 mg/Sodium Chloride 125 ml @ 5 mls/hr TITRATE PRN IV 03/14/17 22:00 03/17/17 06:29 (NS Flush) 2 ml UNSCH PRN IV FLUSH 03/14/17 22:00 (NS Flush) 2 ml BID IV FLUSH 03/15/17 09:00 03/19/17 08:01 (Tylenol) 650 mg Q4H PRN PO 03/14/17 22:00 03/16/17 23:00 (Narcan Inj) 0.4 mg UNSCH PRN IV PUSH 03/14/17 22:00 (Miralax) 17 gm DAILY PO 03/15/17 16:00 03/18/17 08:28 (Vasotec Inj) 2.5 mg Q6H PRN IV PUSH 03/15/17 18:45 03/16/17 13:37 (Xarelto) 20 mg HS PO 03/17/17 21:00 03/18/17 20:52 (Coreg) 25 mg Q12HR PO 03/17/17 21:00 03/19/17 07:59 (Prinivil) 20 mg Q12HR PO 03/17/17 21:00 03/19/17 07:59 Vital Signs / I&O Vital Signs Date Time Temp Pulse Resp B/P (MAP) Pulse Ox O2 Delivery O2 Flow Rate FiO2 03/19/17 12:12 98.5 80 20 124/64 (84) 99 03/19/17 08:12 98.7 86 20 122/66 (84) 99 03/19/17 08:00 101 03/19/17 07:00 Nasal Cannula 2.00 03/19/17 04:00 97.5 70 18 126/96 (106) 99 03/19/17 04:00 Nasal Cannula 2.00 03/19/17 00:00 91 03/19/17 00:00 97.6 108 18 138/90 (106) 97 03/18/17 20:34 97 21 03/18/17 20:00 Nasal Cannula 2.00 03/18/17 20:00 98.0 100 18 150/98 (115) 97 03/18/17 19:45 85 03/18/17 16:51 97 03/18/17 16:02 98.3 99 20 138/92 (107) 97 03/18/17 16:00 87 I/O 03/18/17 03/18/17 03/18/17 03/19/17 03/19/17 03/19/17 07:00 15:00 23:00 07:00 15:00 23:00 Intake Total 240 ml 720 ml 480 ml Output Total 600 ml Balance 240 ml 720 ml -120 ml Intake Oral 240 ml 720 ml 480 ml Output Urine Total 600 ml # Voids 3 4 3 # Bowel Movements 1 2 1 Physical Exam GENERAL: In NAD SKIN: Warm and dry. HEAD: Normocephalic. EYES: No scleral icterus. No injection or drainage. NECK: Supple, trachea midline. No JVD or lymphadenopathy. CARDIOVASCULAR: Irregular rate and rhythm, without murmurs, gallops, or rubs. RESPIRATORY: Breath sounds equal bilaterally. No accessory muscle use. GASTROINTESTINAL: Abdomen soft, non-tender, nondistended. MUSCULOSKELETAL: No cyanosis, or edema. . Laboratory Laboratory Tests Test 03/19/17 07:32 White Blood Count 5.6 TH/MM3 Red Blood Count 3.73 MIL/MM3 Hemoglobin 13.2 GM/DL Hematocrit 39.0 % Mean Corpuscular Volume 104.5 FL Mean Corpuscular Hemoglobin 35.3 PG Mean Corpuscular Hemoglobin Concent 33.7 % Red Cell Distribution Width 14.2 % Platelet Count 170 TH/MM3 Mean Platelet Volume 10.0 FL Neutrophils (%) (Auto) 45.1 % Lymphocytes (%) (Auto) 44.5 % Monocytes (%) (Auto) 8.5 % Eosinophils (%) (Auto) 1.6 % Basophils (%) (Auto) 0.3 % Neutrophils # (Auto) 2.5 TH/MM3 Lymphocytes # (Auto) 2.5 TH/MM3 Monocytes # (Auto) 0.5 TH/MM3 Eosinophils # (Auto) 0.1 TH/MM3 Basophils # (Auto) 0.0 TH/MM3 CBC Comment DIFF FINAL Differential Comment Prothrombin Time 13.3 SEC Prothromb Time International Ratio 1.3 RATIO Blood Urea Nitrogen 13 MG/DL Creatinine 0.98 MG/DL Random Glucose 97 MG/DL Total Protein 6.8 GM/DL Albumin 3.1 GM/DL Calcium Level 8.7 MG/DL Phosphorus Level 4.1 MG/DL Magnesium Level 2.4 MG/DL Alkaline Phosphatase 65 U/L Aspartate Amino Transf (AST/SGOT) 24 U/L Alanine Aminotransferase (ALT/SGPT) 27 U/L Total Bilirubin 0.7 MG/DL Sodium Level 138 MEQ/L Potassium Level 4.1 MEQ/L Chloride Level 104 MEQ/L Carbon Dioxide Level 28.4 MEQ/L Anion Gap 6 MEQ/L Estimat Glomerular Filtration Rate 103 ML/MIN B-Type Natriuretic Peptide 532 PG/ML Assessment and Plan Problem List: (1) New onset a-fib ICD Codes: I48.91 - Unspecified atrial fibrillation Status: Acute (2) Hypertensive emergency ICD Codes: I16.1 - Hypertensive emergency Status: Acute (3) Abdominal pain ICD Codes: R10.9 - Unspecified abdominal pain (4) Nausea & vomiting ICD Codes: R11.2 - Nausea with vomiting, unspecified Assessment and Plan No new cardiac issues. Stays in a fib. Echo with moderate LV dysfunction. Continue tx for CHF including beta court and JOSELITO-I. RADHA and cardioversion today. Continue anticoagulation. Dontrell Arriaga MD Mar 19, 2017 15:59
--- NOTE | 2017-03-19 16:50 | HHI.PR ---
Subjective Remarks 41-year-old male presents to the emergency department with a 2 day history of abdominal pain and accompanying nausea/vomiting/diarrhea. The patient reports he came to the emergency department for evaluation of this abdominal pain. While in the ED, he was noted to be tachycardic and EKG showed atrial fibrillation with rapid ventricular response. The patient was also hypertensive to 202/145. He states he developed shortness of breath and heart palpitations both of which were very disconcerting to him. Patient denies any associated chest pain. He has never had anything like this occur in the past. He has no significant medical history although has not been to a doctor in "years." 03-15 Follow-up for atrial fibrillation and hypertensive urgency Patient stated that shortness of breathing has improved. Continues to complain about right upper quadrant pain. He stated that pain worsens with oral intake. He also has constipation. Positive for emesis. Denies any chest pain, palpitation, lightheadedness or dizziness. 03-16 in no acute distress. has occasional cough and sob. no chest pain. still on Cardizem drip. 03-17 remains on Cardizem drip Denies any chest pain Has some shortness of breath and some cough on occasion Denies any tobacco or illicits 03-18 OFF CARDIZEM DRIP HAS SOME SOB ON OCCASION FOR RADHA AND CARDIOVERSION TOMORROW ADD INCENTIVE SPIROMETRY 03/19. Feeling much better after cardioversion. Denies any chest pain or shortness of breath. He reports a history of very or sleep, snoring, waking up with a choking feeling. Says this is been going on for years. Objective Vital Signs Date Time Temp Pulse Resp B/P (MAP) Pulse Ox O2 Delivery O2 Flow Rate FiO2 03/19/17 12:12 98.5 80 20 124/64 (84) 99 03/19/17 08:12 98.7 86 20 122/66 (84) 99 03/19/17 08:00 101 03/19/17 07:00 Nasal Cannula 2.00 03/19/17 04:00 97.5 70 18 126/96 (106) 99 03/19/17 04:00 Nasal Cannula 2.00 03/19/17 00:00 91 03/19/17 00:00 97.6 108 18 138/90 (106) 97 03/18/17 20:34 97 21 03/18/17 20:00 Nasal Cannula 2.00 03/18/17 20:00 98.0 100 18 150/98 (115) 97 03/18/17 19:45 85 03/18/17 16:51 97 I/O 03/18/17 03/18/17 03/18/17 03/19/17 03/19/17 03/19/17 07:00 15:00 23:00 07:00 15:00 23:00 Intake Total 240 ml 720 ml 480 ml Output Total 600 ml Balance 240 ml 720 ml -120 ml Intake Oral 240 ml 720 ml 480 ml Output Urine Total 600 ml # Voids 3 4 3 # Bowel Movements 1 2 1 Result Diagram: 03/19/1732 03/19/17 0732 Objective Remarks GENERAL: sitting up. appears comfortable. aaox3. SKIN: Warm and dry. HEAD: Normocephalic. EYES: No scleral icterus. No injection or drainage. NECK: Supple, trachea midline. No JVD.. CARDIOVASCULAR: Regular rate and rhythm without murmurs, gallops, or rubs. RESPIRATORY: Breath sounds equal bilaterally. No accessory muscle use. GASTROINTESTINAL: Abdomen soft, non-tender, nondistended. MUSCULOSKELETAL: No cyanosis, or edema. BACK: Nontender without obvious deformity. No CVA tenderness. A/P Assessment and Plan //Atrial fibrillation with rapid ventricular response- new onset. continue with Cardizem drip. on Lovenox and aspirin. echo pending. awaiting cardiology follow-up and recommendations; WILL NEED RADHA AND CARDIOVERSION TOMORROW //Hypertensive urgency BP elevated to 202/145 in the emergency department Improving Diltiazem drip -WEANED OFF = Continue current medications. //Suspected untreated sleep apnea. -Patient gives classic history for sleep apnea. Recommend following up with primary care, undergoing workup as outpatient. // Elevated troponin Troponin elevated to 0.07 and flat. Most likely secondary to ATRIAL fibrillation with RVR. = Status post RADHA AND CARDIOVERSION 03-19 = Plan as per cardiology. //Abdominal pain with nausea/vomiting = Ultrasound negative. -Resolved. //Hypokalemia Replenish as needed. //Constipation -Resolved -laxatives as needed. Discharge Planning PENDING CARDIAC CLEARANCE ON LOVENOX WILL NEED ANTICOAGULATION AT DISCHARGE Tl Stewart MD Mar 19, 2017 16:50
[2017-03-19] MEDS: RIVAROXABAN 20 MG TAB PO SCH (21:52)
[2017-03-20] VITALS: BP 135/97; PULSE 88; RESP 19; TEMP 97.9; O2SAT 99
[2017-03-20 04:00] VITALS: BP 125/85; PULSE 82; RESP 18; TEMP 97.9; O2SAT 97
[2017-03-20 08:00] VITALS: PULSE 95
[2017-03-20 08:12] VITALS: BP 143/90; PULSE 90; RESP 22; TEMP 98.1; O2SAT 96
--- NOTE | 2017-03-20 08:16 | PD.CARD.PN ---
Subjective Subjective Remarks No CP, stays in SR, c/o difficulty taking a deep breath Objective Medications Current Medications Medications (Trade) Dose Ordered Sig/Gibson Route Start Time Stop Time Status Last Admin Diltiazem HCl 125 mg/Sodium Chloride 125 ml @ 5 mls/hr TITRATE PRN IV 03/14/17 22:00 03/17/17 06:29 (NS Flush) 2 ml UNSCH PRN IV FLUSH 03/14/17 22:00 (NS Flush) 2 ml BID IV FLUSH 03/15/17 09:00 03/19/17 21:54 (Tylenol) 650 mg Q4H PRN PO 03/14/17 22:00 03/16/17 23:00 (Narcan Inj) 0.4 mg UNSCH PRN IV PUSH 03/14/17 22:00 (Miralax) 17 gm DAILY PO 03/15/17 16:00 03/18/17 08:28 (Vasotec Inj) 2.5 mg Q6H PRN IV PUSH 03/15/17 18:45 03/16/17 13:37 (Xarelto) 20 mg HS PO 03/17/17 21:00 03/19/17 21:52 (Coreg) 25 mg Q12HR PO 03/17/17 21:00 03/19/17 21:52 (Prinivil) 20 mg Q12HR PO 03/17/17 21:00 03/19/17 21:52 Vital Signs / I&O Vital Signs Date Time Temp Pulse Resp B/P (MAP) Pulse Ox O2 Delivery O2 Flow Rate FiO2 03/20/17 04:00 97.9 82 18 125/85 (98) 97 03/20/17 04:00 Room Air 03/20/17 00:00 97.9 88 19 135/97 (110) 99 03/19/17 21:30 Room Air 03/19/17 20:00 97.4 90 18 147/98 (114) 99 03/19/17 16:12 98.1 87 20 126/68 (87) 96 03/19/17 16:00 90 03/19/17 12:12 98.5 80 20 124/64 (84) 99 I/O 03/19/17 03/19/17 03/19/17 03/20/17 03/20/17 03/20/17 07:00 15:00 23:00 07:00 15:00 23:00 Intake Total 480 ml 280 ml 400 ml Output Total 600 ml 1200 ml Balance -120 ml 280 ml -800 ml Intake Oral 480 ml 280 ml 400 ml Output Urine Total 600 ml 1200 ml # Voids 3 4 # Bowel Movements 1 1 1 Physical Exam GENERAL: In NAD SKIN: Warm and dry. HEAD: Normocephalic. EYES: No scleral icterus. No injection or drainage. NECK: Supple, trachea midline. No JVD or lymphadenopathy. CARDIOVASCULAR: Regular rate and rhythm, without murmurs, gallops, or rubs. RESPIRATORY: Breath sounds equal bilaterally. No accessory muscle use. GASTROINTESTINAL: Abdomen soft, non-tender, nondistended. MUSCULOSKELETAL: No cyanosis, or edema. . Assessment and Plan Problem List: (1) New onset a-fib ICD Codes: I48.91 - Unspecified atrial fibrillation Status: Acute (2) Hypertensive emergency ICD Codes: I16.1 - Hypertensive emergency Status: Acute (3) Abdominal pain ICD Codes: R10.9 - Unspecified abdominal pain (4) Nausea & vomiting ICD Codes: R11.2 - Nausea with vomiting, unspecified Assessment and Plan RADHA with mild LV dysfx and mild to mod MR. DC cardioversion successful, stays in SR. Continue tx for CHF and afterload reduction including beta court and JOSELITO-I. Continue anticoagulation with Xarelto for 1 month, then aspirin 325 mg daily. OK to discharge from cardiac standpoint. F/u w PCP as outpatient. Dontrell Arriaga MD Mar 20, 2017 08:16
[2017-03-20] MEDS: POLYETHYLENE GLYCOL 17 GM PKG PO SCH (09:00)
[2017-03-20] MEDS: SODIUM CHLORIDE 0.9% FLUSH 10 ML FLUSH IV FLUSH SCH (09:00)
[2017-03-20] MEDS ORDERED: LISI10TA3 PO (09:21)
[2017-03-20] MEDS ORDERED: CARV12.5 PO (09:21)
[2017-03-20] MEDS ORDERED: XARE20TA PO (09:21)
[2017-03-20] MEDS: CARVEDILOL 12.5 MG TAB PO SCH (10:12)
[2017-03-20] MEDS: LISINOPRIL 10 MG TAB PO SCH (10:12)
[2017-03-20 11:16] VITALS: PULSE 89
--- NOTE | 2017-03-20 11:35 | HHI.PR ---
Subjective Remarks Patient says he is feeling all right. Continues to report poor sleep in the hospital. Encouraged to pursue workup for sleep apnea. Initially reviewed telemetry without issues, however subsequently nursing reports 7 beat run of what appears to be V. tach. Asymptomatic. She will inform cardiology. Objective Vital Signs Date Time Temp Pulse Resp B/P (MAP) Pulse Ox O2 Delivery O2 Flow Rate FiO2 03/20/17 11:16 89 03/20/17 08:12 98.1 90 22 143/90 (107) 96 03/20/17 08:00 95 03/20/17 08:00 98 Nasal Cannula 2.00 03/20/17 04:00 97.9 82 18 125/85 (98) 97 03/20/17 04:00 Room Air 03/20/17 00:00 97.9 88 19 135/97 (110) 99 03/19/17 21:30 Room Air 03/19/17 20:00 97.4 90 18 147/98 (114) 99 03/19/17 16:12 98.1 87 20 126/68 (87) 96 03/19/17 16:00 90 03/19/17 12:12 98.5 80 20 124/64 (84) 99 I/O 03/19/17 03/19/17 03/19/17 03/20/17 03/20/17 03/20/17 07:00 15:00 23:00 07:00 15:00 23:00 Intake Total 480 ml 280 ml 400 ml Output Total 600 ml 1200 ml Balance -120 ml 280 ml -800 ml Intake Oral 480 ml 280 ml 400 ml Output Urine Total 600 ml 1200 ml # Voids 3 4 1 # Bowel Movements 1 1 1 Result Diagram: 03/19/17 0732 03/19/17 0732 Objective Remarks GENERAL: sitting up. appears comfortable. aaox3. Exam unchanged from yesterday. SKIN: Warm and dry. HEAD: Normocephalic. EYES: No scleral icterus. No injection or drainage. NECK: Supple, trachea midline. No JVD.. CARDIOVASCULAR: Regular rate and rhythm without murmurs, gallops, or rubs. RESPIRATORY: Breath sounds equal bilaterally. No accessory muscle use. GASTROINTESTINAL: Abdomen soft, non-tender, nondistended. MUSCULOSKELETAL: No cyanosis, or edema. BACK: Nontender without obvious deformity. No CVA tenderness. A/P Assessment and Plan //Atrial fibrillation with rapid ventricular response- new onset. continue with Cardizem drip. on Lovenox and aspirin. echo pending. = Improved after RADHA cardioversion 03/19. Continue beta court, anticoagulation. //7 beats of asymptomatic V. tach. On telemetry. Nursing to inform cardiology. //Hypertensive urgency BP elevated to 202/145 in the emergency department Improving Diltiazem drip -WEANED OFF = Continue current medications. //Suspected untreated sleep apnea. -Patient gives classic history for sleep apnea. Recommend following up with primary care, undergoing workup as outpatient. // Elevated troponin Troponin elevated to 0.07 and flat. Most likely secondary to ATRIAL fibrillation with RVR. = Status post RADHA AND CARDIOVERSION 03-19 = Plan as per cardiology. //Abdominal pain with nausea/vomiting = Ultrasound negative. -Resolved. //Hypokalemia Replenish as needed. //Constipation -Resolved -laxatives as needed. Discharge Planning Patient was asymptomatic V. tach this morning. Plan discharge home when cleared by cardiology. Tl Stewart MD Mar 20, 2017 11:35
--- NOTE | 2017-03-20 11:41 | HHI.DS ---
Discharge Summary Admission Date Mar 14, 2017 at 21:47 Discharge Date: Mar 20, 2017 Admitting Diagnosis Afib RVR, hypertensive emergency (1) New onset a-fib ICD Code: I48.91 - Unspecified atrial fibrillation Status: Acute (2) Hypertensive emergency ICD Code: I16.1 - Hypertensive emergency Status: Acute Procedures RADHA cardioversion Brief History - From Admission 41-year-old male presents to the emergency department with a 2 day history of abdominal pain and accompanying nausea/vomiting/diarrhea. The patient reports he came to the emergency department for evaluation of this abdominal pain. While in the ED, he was noted to be tachycardic and EKG showed atrial fibrillation with rapid ventricular response. The patient was also hypertensive to 202/145. He states he developed shortness of breath and heart palpitations both of which were very disconcerting to him. Patient denies any associated chest pain. He has never had anything like this occur in the past. He has no significant medical history although has not been to a doctor in "years. CBC/BMP: 03/19/17 0732 03/19/17 0732 Significant Findings Laboratory Tests Test 03/18/17 09:17 03/19/17 07:32 Red Blood Count 3.73 MIL/MM3 (4.50-5.90) 3.73 MIL/MM3 (4.50-5.90) Mean Corpuscular Volume 105.0 FL (80.0-100.0) 104.5 FL (80.0-100.0) Mean Corpuscular Hemoglobin 35.3 PG (27.0-34.0) 35.3 PG (27.0-34.0) Monocytes (%) (Auto) 8.1 % (0.0-8.0) 8.5 % (0.0-8.0) Albumin 3.1 GM/DL (3.4-5.0) 3.1 GM/DL (3.4-5.0) Total Bilirubin 1.1 MG/DL (0.2-1.0) Lymphocytes (%) (Auto) 44.5 % (9.0-44.0) Prothrombin Time 13.3 SEC (9.8-11.6) B-Type Natriuretic Peptide 532 PG/ML (0-100) Imaging Last Impressions Gall Bladder Ultrasound 03/16/17 0000 Signed Impressions: Service Date/Time: Thursday, March 16, 2017 07:56 - CONCLUSION: 1. Right pleural effusion. 2. Otherwise, unremarkable exam. Gerard Ureña Jr., MD Ribs X-Ray 03/14/17 0000 Signed Impressions: Service Date/Time: Tuesday, March 14, 2017 17:40 - CONCLUSION: 1. Degenerative spurring of the dorsal spine. No fracture. 2. Lungs are clear. 3. Compensated cardiomegaly. Mukesh Patel MD CT Angiography 03/14/17 0000 Signed Impressions: Service Date/Time: Tuesday, March 14, 2017 20:44 - CONCLUSION: 1. Negative for pulmonary embolus. Bilateral pleural effusions. Multiple calcified mediastinal and axillary lymph nodes with axillary adenopathy on the left side up to 1.8 cm in diameter. Patrick Weston MD PE at Discharge GENERAL: Awake alert and oriented 3 talkative and cooperative appears stated age SKIN: Warm and dry. HEAD: Atraumatic. Normocephalic. EYES: Pupils equal and round. No scleral icterus. No injection or drainage. Extraocular muscles intact ENT: No nasal bleeding or discharge. Mucous membranes pink and moist. Tongue is midline NECK: Trachea midline. No JVD. Supple CARDIOVASCULAR: IRRegular rate and rhythm. S1 and S2 no S3 or S4 RESPIRATORY: No accessory muscle use. Clear to auscultation. Breath sounds equal bilaterally. GASTROINTESTINAL: Abdomen soft, non-tender, nondistended. Hepatic and splenic margins not palpable. MUSCULOSKELETAL: Extremities without clubbing, cyanosis, or edema. No obvious deformities. NEUROLOGICAL: Awake and alert. No obvious cranial nerve deficits. Motor grossly within normal limits. Five out of 5 muscle strength in the arms and legs. Normal speech. PSYCHIATRIC: Appropriate mood and affect; insight and judgment normal. Hospital Course patient was found to be in atrial fibrillation with RVR, which improved on diltiazem drip, RADHA cardioversion by cardiology. Patient also presented with hypertensive urgency with blood pressure 202/145. Improved with addition of blood pressure medications. Patient has suspected severe sleep apnea, will need follow-up with primary care, sleep apnea workup as outpatient. For problem-based summary from most recent progress note, please see below. //Atrial fibrillation with rapid ventricular response- new onset. continue with Cardizem drip. on Lovenox and aspirin. echo pending. = Improved after RADHA cardioversion 03/19. Continue beta court, anticoagulation. //7 beats of asymptomatic V. tach. On telemetry. Nursing to inform cardiology. //Hypertensive urgency BP elevated to 202/145 in the emergency department Improving Diltiazem drip -WEANED OFF = Continue current medications. //Suspected untreated sleep apnea. -Patient gives classic history for sleep apnea. Recommend following up with primary care, undergoing workup as outpatient. // Elevated troponin Troponin elevated to 0.07 and flat. Most likely secondary to ATRIAL fibrillation with RVR. = Status post RADHA AND CARDIOVERSION 03-19 = Plan as per cardiology. //Abdominal pain with nausea/vomiting = Ultrasound negative. -Resolved. //Hypokalemia Replenish as needed. //Constipation -Resolved -laxatives as needed. Discharge Planning Patient was asymptomatic V. tach this morning. Plan discharge home when cleared by cardiology. Pt Condition on Discharge: Good Discharge Disposition: Discharge Home Discharge Time: > 30 minutes Discharge Instructions DIET: Follow Instructions for: Heart Healthy Diet Activities you can perform: Regular-No Restrictions Follow up Referrals: Cardiology - 1 Month with Dontrell Arriaga MD Cardiology @ [facility] PCP Follow-up - 1 Week with Dinadominic Nunn PCP Follow-up @ [facility] New Medications: Carvedilol (Coreg) 12.5 Mg Tab 25 MG PO Q12HR for heart for 30 Days, TAB Lisinopril (Lisinopril) 10 Mg Tab 20 MG PO Q12HR for Blood Pressure Management for 30 Days, TAB Rivaroxaban (Xarelto) 20 Mg Tab 20 MG PO HS for prevent stroke for 30 Days, TAB Tl Stewart MD Mar 20, 2017 11:41
[2017-03-20 12:12] VITALS: BP 144/88; PULSE 92; RESP 22; TEMP 98.2; O2SAT 97
--- NOTE | 2017-03-20 20:54 | MR ---
cc: SKY GERARDO Corrected Copy: 04/12/17 DATE 03/19/2017 INDICATION Atrial fibrillation. PROCEDURE PERFORMED DC cardioversion DETAILS After the patient was sedated by anesthesia a transesophageal echocardiogram showed no evidence of left atrial thrombus. A 200 joules biphasic shock was delivered and converted the patient to sinus rhythm. The patient remained stable and was transferred back to his room in stable condition. DIAGNOSIS Successful cardioversion of atrial fibrillation. DISPOSITION Mr. Whyte will continue his current medical program including anticoagulation. We will continue monitoring on telemetry. MD CATE Chinchilla/KK /3:55 PM /8:21 AM
--- NOTE | 2017-03-21 10:04 | EKG ---
Date Performed: 03/20/2017 Time Performed: 12:03:52 PTAGE: 41 years EKG: Sinus rhythm LEFT ATRIAL ENLARGEMENT POSSIBLE RIGHT VENTRICULAR CONDUCTION DELAY NONSPECIFIC ST & T-WAVE ABNORMAL ITY ABNORMAL ECG PREVIOUS TRACING : 03/15/2017 09.25 Compared to prior study, sinus rhythm has replaced atrial f ibrillation. T-wave inversion in the lateral leads has resolved; although, ST segment changes are sti ll present. DOCTOR: Ravinder Vazquez Interpretating Date/Time 03/21/2017 10:03:07
--- NOTE | 2017-03-22 12:40 | CF ---
cc: DONTRELL ARRIAGA DATE: 03/19/2017 PROCEDURE PERFORMED: Transesophageal echocardiogram. INDICATION: Atrial fibrillation. Evaluation for left atrial thrombus prior to cardioversion. PROCEDURE: After the patient was sedated by Anesthesia, transesophageal probe was placed without difficulty. Tomographic images were obtained. Left ventricular function was mildly decreased with an estimated ejection fraction of 45% with mild global hypokinesis. The aortic valve was structurally normal; there was no evidence of aortic stenosis or regurgitation. The mitral valve was structurally normal; there was no evidence of mitral stenosis. There was evidence of mild to moderate mitral regurgitation. There was evidence of mild tricuspid regurgitation. Bubble study was performed and there was no evidence of [id number] shunt. DIAGNOSES: 1. No evidence of left atrial thrombus. 2. Mild left ventricular systolic dysfunction. 3. Mild to moderate mitral regurgitation. 4. Mild tricuspid regurgitation. Dontrell Arriaga MD OQ/SSB /3:54 PM /3:28 PM
== END 2017-03-20 14:19 | disposition home or self-care (01) ==
LOC: NEPD 15:31 → NEDA 21:47 → UNDOADMIN 21:47 → NEDA 22:02 → INTOOBSV 22:02 → NEDH 03-15 01:47 → NEDA 03-15 01:47 → NEDH 03-15 12:50 → N04A 03-15 12:50 → UNDODISIN 03-20 14:19
PROVIDERS: ADMIT Internal Medicine; ATTEND Internal Medicine
DX: I16.1 Hypertensive emergency (principal); I48.91 Unspecified atrial fibrillation; J90 Pleural effusion, not elsewhere classified; R06.02 Shortness of breath; R61 Generalized hyperhidrosis; I51.7 Cardiomegaly; L30.9 Dermatitis, unspecified; R19.7 Diarrhea, unspecified; R11.2 Nausea with vomiting, unspecified; R10.11 Right upper quadrant pain; E87.6 Hypokalemia; R14.0 Abdominal distension (gaseous); R73.9 Hyperglycemia, unspecified; Z83.3 Family history of diabetes mellitus
CPT/HCPCS: 71101; 71275; 76705; 80048; 80053; 81001; 82550; 83036; 83690; 83735; 83880; 84100; 84439; 84443; 84484; 85025; 85610; 87804; 92960; 93005; 93306; 94150; 96361; 96365; 96366; 96372; 96375; 96376; 99291; G0378; J0360; J1650; J1885; J2060; J2250; J2405; J3010; J7030; Q9967; 96374